=== PATIENT | female | born 1945 | race Two or more races ===

== ENCOUNTER 2023-05-31 11:52 | Outpatient (AMB) | payer MEDICARE, MEDICAID, SELFPAY ==
--- NOTE | 2023-05-31 11:59 | MHC.OFFVIS ---
Intake Vital Signs 05/31/23 12:00 Height 5 ft 4 in Weight 156 lb 15.506 oz BMI 26.9 BP 137/65 Blood Pressure Location Rt brachial Position Sitting Pulse 70 Intake Visit Reasons: + colo gaurd Intake Note: Katie presents to in office visit today as a new patient for positive cologuard. CC:Patient c/o constipation, a lot of gas, and diarrhea. Patient with hx of diverticulosis. Last colonoscopy and EGD about 10 years ago at [facility]. Patient reports seeing dark blood in her stools when she is very constipated. She also reports getting nausea and vomiting about twice a week usually after eating and diarrhea worst at night. Per patient last time she had an EGD done she got pancreatitits and she would not like to have EGD done again. [employer] Required: No Accompanied by: Daughter Allergies oxycodone [From PERCOCET] Allergy (Intermediate, Verified 05/31/23 12:17) VOMIITNG codeine [CODEINE] Allergy (Unknown, Verified 05/31/23 12:17) NAUSEA,VOMITING HPI + colo gaurd HPI Details 77-year-old female with past medical history of asthma, anxiety, hyperthyroidism, hypercholesteremia is here today for initial consultation. Patient is here for colonoscopy as she had positive fit test and PCP send her for colonoscopy. Patient had last colonoscopy over 10 years ago and was told that she most likely will never had to have another one. Patient reports postprandial epigastric pain and bloating. Patient reports that she noticed black stool specially if she does not go to the bathroom for couple days. Occasional postprandial abdominal bloating depending on what she eats. Patient reports occasional postprandial loose stools then constipation. Patient is status post cholecystectomy many years ago. Patient reports that her symptoms very, once loose stools then constipation for few days. Patient also reports getting nauseous 2 to 3 times a week. Symptoms of nausea, epigastric pain are worse at night and in the morning. Patient reports dyspepsia without dysphagia or odynophagia. Reports occasional melena without hematochezia weight loss or ribbon like stools. [facility] Surgical History (Updated 05/31/23 @ 12:20 by Delroy Triplett [facility] History of nasal surgery History of cholecystectomy History of esophagogastroduodenoscopy (EGD) H/O colonoscopy Review of Systems Const Denies weight gain and Denies weight loss ENT Reports no additional complaints, Denies dysphagia and Denies odynophagia Card Reports no additional complaints Resp Reports no additional complaints GI Reports abdominal pain, Denies belching, Denies melena, Reports bloating, Reports constipation, Denies dysphagia, Denies excessive flatus, Denies dyspepsia, Reports heartburn, Denies diarrhea, Reports loose stools, Denies nausea, Denies odynophagia and Denies vomiting Reports no additional complaints Musc Reports no additional complaints Neuro Reports no additional complaints Psych Reports no additional complaints Endo Reports no additional complaints Physical Exam Vital Signs: Last Vital Signs Pulse 70 05/31/23 12:00 BP 137/65 05/31/23 12:00 BMI result Body Mass Index 26.9 Const General: healthy appearing, no acute distress and well developed Nutritional Appearance: well nourished Orientation/consciousness: patient oriented x3 Resp Effort & Inspection: normal respiratory effort, able to speak in complete sentences, no tracheal deviation and symmetric chest movement Auscultation: clear to auscultation bilaterally Cardio Rate: regular rate GI Inspection: Yes normal to inspection and No distended Palpation (GI): Soft to palpation, not firm, nontender and No hepatosplenomegaly present Auscultation: normal bowel sounds General: Yes no CVA tenderness Back/Spine/Pelvis Back: no CVA tenderness Skin General skin exam: elasticity normal, turgor normal and dry skin Neuro General: patient oriented x3 Psych Appearance: grossly normal Mental Status: mental status grossly normal Assessment & Plan Assessment & Plan (1) Postprandial epigastric pain: Code(s): R10.13 - Epigastric pain (2) Postprandial abdominal bloating: Code(s): R14.0 - Abdominal distension (gaseous) (3) Constipation: Code(s): K59.00 - Constipation, unspecified Qualifiers: Constipation type: slow transit constipation Qualified Code(s): K59.01 - Slow transit constipation Plan Multiple symptoms of diarrhea and constipation, postprandial abdominal bloating. Will check thyroid study, vitamin-D, B12, folate, lipase transglutaminase, CRP and CBC. Patient does report black stool at times. Patient does report diarrhea more often than constipation. Patient will start Citrucel twice a day. If she becomes constipated patient can take stool softener [id number] laxative like senna or Dulcolax. Patient reports abdominal bloating and left upper quadrant discomfort we will send her to rule out pancreatic insufficiency and check lipase as well. She will return in 5 weeks we can discuss how to proceed with colonoscopy. Patient will be book for colonoscopy today. Patient is agreeable to current plan of care and verbalizes understanding of instructions. She was given the opportunity to ask questions and all questions answered. Thank you for allowing me to participate in her care Orders: Orders TSH reflex Free T4 05/31/23 K59.00 - Constipation, unspecified Transglutaminase IgA 05/31/23 R10.9 - Unspecified abdominal pain Vitamin B12 and Folate 05/31/23 R19.7 - Diarrhea, unspecified Vitamin D 25-OH (D2 and D3) 05/31/23 E55.9 - Vitamin D deficiency, unspecified Pancreatic Elastase-1 05/31/23 R10.9 - Unspecified abdominal pain Lipase 05/31/23 R10.9 - Unspecified abdominal pain Transglutaminase Ab IgG 05/31/23 R10.9 - Unspecified abdominal pain Liver Panel 05/31/23 R74.01 - Elevation of levels of liver transaminase levels C Reactive Protein 05/31/23 K58.9 - Irritable bowel syndrome without diarrhea Complete Blood Count no Diff 05/31/23 K21.9 - Gastro-esophageal reflux disease without esophagitis Medications: New methylcellulose (laxative) (Citrucel) 500 mg PO BID 60 tabs 2RF Coding Level of Care Code New Pt Level 4 (60090) Diagnoses Postprandial epigastric pain R10.13 Postprandial abdominal bloating R14.0 Slow transit constipation K59.01 Constipation type: slow transit constipation Time Spent (min) 45 Comment 30 minutes spent with patient and additional 15 minutes spent reviewing her records
[2023-05-31 12:00] VITALS: BP 137/65; PULSE 70; BMI 26.9
== END 2023-05-31 12:44 | disposition home or self-care (01) ==
PROVIDERS: PCP Internal Medicine; Visit Provider Nurse Practitioner Family
DX: R10.13 Epigastric pain (principal); R14.0 Abdominal distension (gaseous); K59.01 Slow transit constipation
CPT/HCPCS: 99204

== ENCOUNTER 2023-05-31 11:56 | Outpatient (REF) | payer MEDICARE, SELFPAY ==
[2023-05-31 14:15] LABS: Hematocrit 40.8 % (37.0-47.0); Hemoglobin 13.5 g/dl (12.0-16.0); Mean Corpuscular HGB Conc 33.1 g/dl (31.0-35.0); Mean Corpuscular Hemoglobin 29.7 pg (27.0-33.0); Mean Corpuscular Volume 89.7 fL (80.0-98.0); Platelet Count 227 X10*3/uL (160-400); Red Blood Count 4.55 X10*6/uL (4.20-5.50); Red Cell Distribution Width 12.4 % (11.0-16.0); White Blood Count 7.4 X10*3/uL (4.8-10.8)
[2023-05-31 15:12] LABS: Alanine Aminotransferase 16 U/L (0-31); Albumin Level 4.2 g/dL (3.5-5.0); Alkaline Phosphatase 114 U/L (39-117); Aspartate Amino Transferase 15 U/L (5-31); Bilirubin Direct 0.2 mg/dL (0.0-0.5); Bilirubin Total 0.5 mg/dL (0.0-1.0); C Reactive Protein 0.46 mg/dL (< or = 0.50); Lipase 14 U/L (8-78)
[2023-05-31 15:17] LABS: TSH reflex Free T4 0.61 uIU/mL (0.32-4.0)
[2023-05-31 15:22] LABS: Folate 13.6 ng/mL (> or = 4.0); Vitamin B12 594 pg/mL (200-900)
[2023-06-01 20:54] LABS: Transglutaminase Ab IgG <1.0 U/mL; Transglutaminase IgA <1.0 U/mL
[2023-06-05 12:18] LABS: Vitamin D 25-OH, D2 <4 ng/mL; Vitamin D 25-OH, D3 15 ng/mL; Vitamin D 25-OH, Total 15 ng/mL (30-100)
== END 2023-05-31 11:57 | disposition home or self-care (01) ==
LOC: HO.LAB 11:56
PROVIDERS: PCP Internal Medicine; Visit Provider Nurse Practitioner Family
DX: K59.00 Constipation, unspecified (principal); R10.9 Unspecified abdominal pain; R10.13 Epigastric pain; R14.0 Abdominal distension (gaseous); K59.01 Slow transit constipation; E55.9 Vitamin D deficiency, unspecified; R74.01 Elevation of levels of liver transaminase levels; K58.1 Irritable bowel syndrome with constipation; K58.0 Irritable bowel syndrome with diarrhea
CPT/HCPCS: 36415; 80076; 82306; 82607; 82746; 83690; 84443; 85027; 86140; 86364; 99202

== ENCOUNTER 2023-07-23 14:17 | Outpatient (REF) | payer MEDICARE, SELFPAY ==
[2023-07-31 20:07] LABS: Pancreatic Elastase-1 495 mcg/g
== END 2023-07-23 14:18 | disposition home or self-care (01) ==
LOC: HO.LNP 14:17
PROVIDERS: Visit Provider Nurse Practitioner Family
DX: R10.9 Unspecified abdominal pain (principal)
CPT/HCPCS: 82656

== ENCOUNTER 2023-09-24 11:30 | Outpatient (AMB) | payer MEDICARE, SELFPAY ==
--- NOTE | 2023-09-24 11:36 | A.OFFVIS_ITS ---
Vital Signs 09/24/23 11:37 Height 5 ft 4 in Weight 154 lb BMI 26.4 BP 126/66 Blood Pressure Location Lt brachial Position Sitting Pulse 71 Intake Visit Reasons: discuss prep Intake Note: Patient follow up for constipation and lab results. Patient cc: diarrhea, N/V, Abdominal pain with food, and between diarrhea and constipation on and off. Day Care Supervisor Required: No Accompanied by: Daughter Allergies oxycodone [From PERCOCET] Allergy (Intermediate, Verified 09/24/23 11:35) VOMIITNG codeine [CODEINE] Allergy (Unknown, Verified 09/24/23 11:35) NAUSEA,VOMITING HPI HPI discuss prep: Details: LAST VISIT Postprandial epigastric pain Postprandial abdominal bloating Constipation Plan Multiple symptoms of diarrhea and constipation, postprandial abdominal bloating. Will check thyroid study, vitamin-D, B12, folate, lipase transglutaminase, CRP and CBC. Patient does report black stool at times. Patient does report diarrhea more often than constipation. Patient will start Citrucel twice a day. If she becomes constipated patient can take stool softener [id number] laxative like senna or Dulcolax. Patient reports abdominal bloating and left upper quadrant discomfort we will send her to rule out pancreatic insufficiency and check lipase as well. She will return in 5 weeks we can discuss how to proceed with colonoscopy. Patient will be book for colonoscopy today. Patient is agreeable to current plan of care and verbalizes understanding of instructions. She was given the opportunity to ask questions and all questions answered. ? Thank you for allowing me to participate in her care Orders Orders TSH reflex Free T4 05/31/23 K59.00 Transglutaminase IgA 05/31/23 R10.9 Vitamin B12 and Folate 05/31/23 R19.7 Vitamin D 25-OH (D2 and D3) 05/31/23 E55.9 Pancreatic Elastase-1 05/31/23 R10.9 Lipase 05/31/23 R10.9 Transglutaminase Ab IgG 05/31/23 R10.9 Liver Panel 05/31/23 R74.01 C Reactive Protein 05/31/23 K58.9 Complete Blood Count no Diff 05/31/23 K21.9 Medications New methylcellulose (laxative) (Citrucel) 500 mg PO BID 60 tabs 2RF TODAY'S VISIT Patient is here today for follow-up and to discuss lab results. No anemia patient has essentially normal study. CRP was normal unlikely IBD. Patient continues to have occasionally loose stools postprandially depending on what she eats. Patient states that she is taking Citrucel, however she feels like it bites her up little bit so then she stops taking it. She does not feel like she empties her bowels completely though. Patient has colonoscopy scheduled for the of this month and has prep home as well as the instructions. Patient's daughter is here with her and they both understand and know how to prep. Will go over again today to see if they have any questions. Patient denies any issues with anesthesia in the past. No history of sleep apnea. Not on any anticoagulation medication. No chest pain, shortness of breath with or without exertion. [facility] Surgical History History of nasal surgery History of cholecystectomy History of esophagogastroduodenoscopy (EGD) H/O colonoscopy Review of Systems Const Denies weight gain and Denies weight loss ENT Reports no additional complaints, Denies dysphagia and Denies odynophagia Card Reports no additional complaints Resp Reports no additional complaints GI Reports abdominal pain (Cramping), Denies belching, Denies melena, Reports bloating, Reports constipation (On and off), Denies dysphagia, Denies excessive flatus, Denies dyspepsia, Reports heartburn (Occasional), Denies diarrhea, Reports loose stools, Denies nausea, Denies odynophagia and Denies vomiting Reports no additional complaints Musc Reports no additional complaints Neuro Reports no additional complaints Psych Reports no additional complaints Endo Reports no additional complaints Physical Exam Vital Signs: Last Vital Signs Pulse 71 09/24/23 11:37 BP 126/66 09/24/23 11:37 BMI result Body Mass Index 26.4 Const General: healthy appearing, no acute distress and well developed Nutritional Appearance: well nourished Orientation/consciousness: patient oriented x3 Resp Effort & Inspection: normal respiratory effort, able to speak in complete sentences, no tracheal deviation and symmetric chest movement Auscultation: clear to auscultation bilaterally Cardio Rate: regular rate GI Inspection: Yes normal to inspection and No distended Palpation (GI): Soft to palpation, not firm, nontender and No hepatosplenomegaly present Auscultation: normal bowel sounds General: Yes no CVA tenderness Back/Spine/Pelvis Back: no CVA tenderness Skin General skin exam: elasticity normal, turgor normal and dry skin Neuro General: patient oriented x3 Psych Appearance: grossly normal Mental Status: mental status grossly normal Results Reviewed Results Reviewed: Laboratory Tests 05/31/23 07/23/23 13:27 11:00 RBC 4.55 Hgb 13.5 Hct 40.8 AST 15 ALT 16 Alkaline Phosphatase 114 C-Reactive Protein 0.46 Lipase 14 Vitamin B12 594 25-OH Vitamin D Total 15 L Folate 13.6 TSH 0.61 Stool Pancreat Elastase 495 Tiss Transglutamin IgG <1.0 Tiss Transglutamin IgA <1.0 Assessment & Plan Assessment & Plan (1) Postprandial epigastric pain: Code(s): R10.13 - Epigastric pain (2) Postprandial abdominal bloating: Code(s): R14.0 - Abdominal distension (gaseous) (3) Constipation: Code(s): K59.00 - Constipation, unspecified Qualifiers: Constipation type: slow transit constipation Qualified Code(s): K59.01 - Slow transit constipation (4) Screen for colon cancer: Code(s): Z12.11 - Encounter for screening for malignant neoplasm of colon Plan Will add senna to take it at night time. Patient reports that she is constipated now that she is taking Citrucel. Patient is status post cholecystectomy postprandial diarrhea is very come in depending on what she eats. Avoid food high in fat food that aggravates her. Increase fluid intake and activity to promote better bowel motility. Again what to expect before during and after procedure discussed with patient. The importance of clear liquid diet as well as good bowel prep day before procedure discussed with her. I will see her after the procedure, sooner on as needed basis. Normal CRP rules against IBD, however colonoscopy surveillance will show if there is any colonic mucosal changes. Most likely her symptoms are related to IBS with diarrhea type and that patient does not empty her bowels completely, mixed with status post cholecystectomy symptoms. Both patient and daughter are agreeable to current plan of care and verbalizes understanding of instructions. They were given the opportunity to ask questions and all questions answered. Thank you for allowing me to participate in her care Medications: New sennosides (Natural Senna Laxative) 17.2 mg (2 x 8.6 mg) PO BEDTIME 60 tabs 3RF constipation K59.00 - Constipation, unspecified Coding Level of Care Code Est Pt Level 4 (59200) Diagnoses Postprandial epigastric pain R10.13 Postprandial abdominal bloating R14.0 Slow transit constipation K59.01 Constipation type: slow transit constipation Screen for colon cancer Z12.11 Time Spent (min) 35 Comment 20 minutes spent with patient and additional 15 minutes spent reviewing her records
[2023-09-24 11:37] VITALS: BP 126/66; PULSE 71; BMI 26.4
== END 2023-09-24 12:53 | disposition home or self-care (01) ==
PROVIDERS: PCP Internal Medicine; Visit Provider Nurse Practitioner Family
DX: R10.13 Epigastric pain (principal); R14.0 Abdominal distension (gaseous); K59.01 Slow transit constipation; Z12.11 Encounter for screening for malignant neoplasm of colon
CPT/HCPCS: 99214

== ENCOUNTER → 2023-09-24 11:30 | Outpatient (BNVA) | payer MEDICARE, SELFPAY | PROVIDERS: PCP Internal Medicine; Visit Provider Nurse Practitioner Family | DX: Z12.11 Encounter for screening for malignant neoplasm of colon (principal); K59.01 Slow transit constipation; R10.13 Epigastric pain; R14.0 Abdominal distension (gaseous) | CPT/HCPCS: 99212 ==

== ENCOUNTER 2023-10-08 10:19 | Day surgery (SDC) | payer MEDICARE, OTHER, SELFPAY ==
--- NOTE | 2023-10-07 10:15 | P.CONAN_ITS ---
Documented by User: Idalia Quiroz NP 10/07/23 10:28 HPI - Anesthesia Eval Consult details Narrative: 78yo F for Colonoscopy [facility] Past Medical History Medical History (Updated 10/07/23 @ 10:27 by Idalia Quiroz NP) HLD (hyperlipidemia) Hyperthyroidism Anxiety Asthma Surgical History Surgical History History of nasal surgery History of cholecystectomy History of esophagogastroduodenoscopy (EGD) H/O colonoscopy Social History Social History Patient Tobacco Use Status: Never used Tobacco Use of substances other than those prescribed or required for medical reasons: No Are you DNR?: No Advance Directives: No Advance Directives Information Provided: Yes Meds Allergies Allergy/AdvReac Type Severity Reaction Status Date / Time oxycodone [From PERCOCET] Allergy Intermediate VOMIITNG Verified 09/24/23 11:35 Home Medications ?Medication ?Instructions ?Recorded ?Confirmed ?Last Taken ?Type alprazolam 1 mg tablet 1 mg PO DAILY 05/31/23 Unknown History fluticasone propionate 220 2 inh inhalation BID 05/31/23 Unknown History mcg/actuation HFA aerosol inhaler levothyroxine 88 mcg tablet 88 mcg PO DAILY 05/31/23 10/08/23 History montelukast 10 mg tablet 10 mg PO DAILY 05/31/23 Unknown History quetiapine 100 mg tablet 100 mg PO BEDTIME 05/31/23 Unknown History simvastatin 40 mg tablet 40 mg PO BEDTIME 05/31/23 Unknown History Assessment and Plan Assessment Anesthesia Assessment: Chart Reviewed Documented by User: Jose Luis Torres MD 10/08/23 13:33 [facility] Past Medical History Medical History (Updated 10/07/23 @ 10:27 by Idalia Quiroz NP) HLD (hyperlipidemia) Hyperthyroidism Anxiety Asthma Family History Family history of problems with anesthesia: No Surgical History Surgical History History of nasal surgery History of cholecystectomy History of esophagogastroduodenoscopy (EGD) H/O colonoscopy History of Problems with Anesthesia: No Social History Social History Patient Tobacco Use Status: Never used Tobacco Use of substances other than those prescribed or required for medical reasons: No Are you DNR?: No Advance Directives: No Advance Directives Information Provided: Yes Meds Allergies Allergy/AdvReac Type Severity Reaction Status Date / Time oxycodone [From PERCOCET] Allergy Intermediate VOMIITNG Verified 09/24/23 11:35 Home Medications ?Medication ?Instructions ?Recorded ?Confirmed ?Last Taken ?Type alprazolam 1 mg tablet 1 mg PO DAILY 05/31/23 Unknown History fluticasone propionate 220 2 inh inhalation BID 05/31/23 Unknown History mcg/actuation HFA aerosol inhaler levothyroxine 88 mcg tablet 88 mcg PO DAILY 05/31/23 10/08/23 History montelukast 10 mg tablet 10 mg PO DAILY 05/31/23 Unknown History quetiapine 100 mg tablet 100 mg PO BEDTIME 05/31/23 Unknown History simvastatin 40 mg tablet 40 mg PO BEDTIME 05/31/23 Unknown History Exam Airway Mallampati Class: II TM Dist: <=3cm Neck ROM: Full Loose/Missing/Broken Teeth: No Heart: ok Lungs: ok Assessment and Plan Assessment Anesthesia Assessment: Anesthesia Plan Discussed Final Anesthetic Review Family History of Problems with Anesthesia: No History of Problems with Anesthesia: No NPO: Yes ASA Class: III Final Preanesthetic Review: No Changes in Pt Med Stat, Meds/Allgs Chart Reviewed, Consent Obtained/Reviewed and Anes Risks/Benef Reviewed Patient Risk: Intermediate Procedure Risk: Low Anesthetic Plan Anesthetic Plan: MAC: and Agree w/ Assess. and Plan Disposition: Standard PACU
[2023-10-08 11:54] VITALS: BMI 26.8
[2023-10-08 11:56] VITALS: BP 138/64; PULSE 65; RESP 16; TEMP 35.9; O2SAT 98
--- NOTE | 2023-10-08 12:06 | MHC.SHP ---
Pre-Procedural Eval Section A - 24 Hr Update-Section A only Date of Service: 10/08/23 The patient is an INPATIENT: No Changes since office visit: Yes Patient answered all questions; No Cold of Flu in the past 2 weeks, No New Medical Problems and No Changes in Medication The patient has been examined within 24 hours of the surgical procedure. The History & Physical has been completed within 30 days and I have reviewed it.: Yes Section B - Complete if H&P > 30 days Chief Complaint: screening, post prandial diarrhea, IBS Allergies: Allergies Allergy/AdvReac Type Severity Reaction Status Date / Time oxycodone [From PERCOCET] Allergy Intermediate VOMIITNG Verified 09/24/23 11:35 Review of Systems Sugical H&P ROS: Negative: Constitution, Cardiovascular, Respiratory and Gastrointestinal Exam Surgical H&P Exam: Normal: Heart, Normal: Lungs, Normal: Extremities and Normal: Abdomen Plan Diagnosis/Plan: Unchanged I have reviewed the history and physical and performed a pertinent physical examination on my patient. No changes have occurred unless specified. Time Spent With Patient Time: Total time managing care of this patient today ____ minutes.
[2023-10-08] MEDS: Lactated Ringers 1,000 ML 100 ML IVCONT (12:11)
--- NOTE | 2023-10-08 14:36 | HO.OPN-COLON ---
Colonoscopy Operative Note Operative Note Date of Service: 10/08/23 Narrative: COLONOSCOPY TILL CECUM WITH SNARE POLYPECTOMY, SUBMUCOSAL INJECTION, APC AND HEMOCLIP PLACEMENT Pre-op diagnosis: Surveillance for colon polyps, constipation diarrhea. Post-op diagnosis:? Multiple colon polyps, Diverticulosis, hemorrhoids Endoscopist:? Michael Hudson MD Anesthesia:?MAC Consent: Indications for the procedure and potential complications of bleeding, perforation, reaction to medications and missed diagnosis were discussed with the patient and informed consent was obtained. Instrument: Olympus PCF H 190 L variable stiffness pediatric colonoscope Monitoring: Vital signs and clinical assessment, intermittent blood pressure monitoring, continuous EKG monitoring, Pulse oximetry and Carbon Dioxide monitoring were done throughout the procedure. Please see anesthesia flowsheet. Colon withdrawl time was 55 minutes. Procedure: The patient was placed in the left lateral decubitis position and pre-procedure medications were administered. After a digital rectal examination of the ano-rectum, the video colonoscope was inserted into the rectum and advanced through the colon to the cecum. The colonoscope was slowly withdrawn in a retrograde panoramic fashion and the colon mucosa was carefully examined including a retroflexed view of the rectum. Findings and interventions are described below. Procedure Difficulty: without difficulty Findings: Terminal Ileum: Not evaluated Cecum: A 10 mm flat polyp - raised with 3 cc of Eleview and removed with a stiff hot snare. Polypectomy site was closed with 1 hemoclip Ascending Colon: A 3 cms x 1 cms elongated polyp overlying a fold at 80 cms. Polyp was raised with 9 cc of Eleview and removed piecemeal with a stiff hot snare. Polypectomy site was treated with APC, closed with 2 hemoclips and polypectomy site was marked with Analisa. Six 10 - 18 mm sessile polyps - removed with a hot snare. One polypectomy site was closed with 1 hemoclip. A 2 - 2.5 cms sessile polyp in the distal ascending colon at 60 cms. Polyp was removed piecemeal with a stiff hot snare and polypectomy site was marked with Analisa ink Transverse Colon: A few 8 to 10 mm sessile polyps in the proximal TC. Polyps were not removed due to excessive length of the procedure Descending Colon: Moderate diverticulosis Sigmoid Colon: Severe diverticulosis with luminal narrowing Rectum: Normal Ano-rectum: Moderate internal hemorrhoids Colon preparation: , Good after some irrigation. [place] Bowel Preparation Scale Right colon; 2 Transverse colon: 2 Left colon; 2 (0 = Unprepared colon segment with mucosa not seen due to solid stool that cannot be cleared. 1 = Portion of mucosa of the colon segment seen, but other areas of the colon segment not well seen due to staining, residual stool and/or opaque liquid. 2 = Minor amount of residual staining, small fragments of stool and/or opaque liquid, but mucosa of colon segment seen well. 3 = Entire mucosa of colon segment seen well with no residual staining, small fragments of stool or opaque liquid) Impression and Post Procedure Diagnosis: Colonoscopy Findings: Nine medium to large sized polyps were removed A few 8 to 10 mm sessile polyps in the transverse colon. Polyps not removed due to excessive length of the procedure Moderate to severe diverticulosis seen in the left colon Moderate hemorrhoids on retroflexed exam. Plan: Pt has a FU appointment on 10/22/23 with Brunilda Bullock, CUSTOMER TECHNICAL SERVICES MANAGER Repeat Colonoscopy in 6 months if polyps are adenomatous and 10 year if polyps are hyperplastic. Above findings were reviewed with the patient and relevant handouts were given and the discharge area. BIOPSIES SHOWED: A. Colon, ascending, polypectomies (6): Fragments of tubular adenomata; negative for high-grade dysplasia or carcinoma. B. Cecum, polypectomy: Inflammatory polyp. C. Colon, proximal ascending at 80 cm, polypectomy: Fragments of tubular adenoma; negative for high- grade dysplasia or carcinoma. D. Colon, distal ascending, at 60 cm, polypectomy: Tubular adenoma; negative for high-grade dysplasia or carcinoma
[2023-10-08 14:43] VITALS: BP 112/58; PULSE 68; RESP 12; TEMP 36.1; O2SAT 95
[2023-10-08 14:58] VITALS: BP 127/67; PULSE 68; RESP 9; O2SAT 96
[2023-10-08 15:13] VITALS: BP 130/75; PULSE 68; RESP 18; TEMP 36.1; O2SAT 97
== END 2023-10-08 15:47 | disposition home or self-care (01) ==
PROVIDERS: PCP Internal Medicine; Visit Provider Internal Medicine Gastroenterology
PROC: 0DJD8ZZ Inspection of Lower Intestinal Tract, Via Natural or Artificial Opening Endoscopic (ICD-10-PCS; CPT 45378; principal; 2023-10-08 12:10)
DX: Z12.11 Encounter for screening for malignant neoplasm of colon (principal); Z86.010 Personal history of colon polyps; D12.2 Benign neoplasm of ascending colon; K51.40 Inflammatory polyps of colon without complications; K57.30 Diverticulosis of large intestine without perforation or abscess without bleeding; K64.8 Other hemorrhoids; K59.1 Functional diarrhea; K59.01 Slow transit constipation; R14.0 Abdominal distension (gaseous); Z88.5 Allergy status to narcotic agent; Z90.49 Acquired absence of other specified parts of digestive tract
CPT/HCPCS: 45385; 45381; 88305; J2704; J3010

== ENCOUNTER → 2023-10-08 10:19 | Outpatient (BNV) | payer MEDICARE, SELFPAY | PROVIDERS: PCP Internal Medicine; Visit Provider Internal Medicine Gastroenterology | DX: Z12.11 Encounter for screening for malignant neoplasm of colon (principal); Z86.010 Personal history of colon polyps; D12.2 Benign neoplasm of ascending colon; K57.90 Diverticulosis of intestine, part unspecified, without perforation or abscess without bleeding | CPT/HCPCS: 45381; 45385 ==

== ENCOUNTER 2023-10-22 12:00 | Outpatient (AMB) | payer MEDICARE, SELFPAY ==
--- NOTE | 2023-10-22 12:12 | A.OFFVIS_ITS ---
Vital Signs 10/22/23 12:13 Height 5 ft 4 in Weight 157 lb 13.616 oz BMI 27.1 BP 132/58 L Blood Pressure Location Lt brachial Position Sitting Pulse 64 Pulse Source Pulse Oximeter Pulse Oximetry (%) 97 Oxygen Delivery Method Room Air Intake Visit Reasons: follow up after procedure Intake Note: Katie presents in office today for a scheduled post op FUV. CC: Pt reports a new concern regarding appetite and intake. Pt states that they're experiencing abdominal pain and difficulty with intake and digestion which seems worse post op. Pt still experiencing frequent and intermittent diarrhea and constipation. Drugless Physician Required: No Accompanied by: Grand Child Allergies oxycodone [From PERCOCET] Allergy (Intermediate, Verified 10/22/23 12:12) VOMIITNG HPI HPI follow up after procedure: Details: LAST VISIT: Postprandial epigastric pain Postprandial abdominal bloating Constipation Screen for colon cancer Plan Will add senna to take it at night time. Patient reports that she is constipated now that she is taking Citrucel. Patient is status post cholecystectomy postprandial diarrhea is very come in depending on what she eats. Avoid food high in fat food that aggravates her. Increase fluid intake and activity to promote better bowel motility. Again what to expect before during and after procedure discussed with patient. The importance of clear liquid diet as well as good bowel prep day before procedure discussed with her. I will see her after the procedure, sooner on as needed basis. Normal CRP rules against IBD, however colonoscopy surveillance will show if there is any colonic mucosal changes. 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 Both patient and daughter are agreeable to current plan of care and verbalizes understanding of instructions. They were given the opportunity to ask questions and all questions answered. ? Thank you for allowing me to participate in her care Medications New sennosides (Natural Senna Laxative) 17.2 mg (2 x 8.6 mg) PO BEDTIME 60 tabs 3RF constipation K59.00 COLONOSCOPY Findings: Terminal Ileum: Not evaluated Cecum: A 10 mm flat polyp - raised with 3 cc of Eleview and removed with a stiff hot snare. Polypectomy site was closed with 1 hemoclip Ascending Colon: A 3 cms x 1 cms elongated polyp overlying a fold at 80 cms. Polyp was raised with 9 cc of Eleview and removed piecemeal with a stiff hot snare. Polypectomy site was treated with APC, closed with 2 hemoclips and polypectomy site was marked with Analisa. Six 10 - 18 mm sessile polyps - removed with a hot snare. One polypectomy site was closed with 1 hemoclip. A 2 - 2.5 cms sessile polyp in the distal ascending colon at 60 cms. Polyp was removed piecemeal with a stiff hot snare and polypectomy site was marked with Analisa ink Transverse Colon: A few 8 to 10 mm sessile polyps in the proximal TC. Polyps were not removed due to excessive length of the procedure Descending Colon: Moderate diverticulosis Sigmoid Colon: Severe diverticulosis with luminal narrowing Rectum: Normal Ano-rectum: Moderate internal hemorrhoids Colon preparation: , Good after some irrigation. Labadie Bowel Preparation Scale Right colon; 2 Transverse colon: 2 Left colon; 2 (0 = Unprepared colon segment with mucosa not seen due to solid stool that cannot be cleared. 1 = Portion of mucosa of the colon segment seen, but other areas of the colon segment not well seen due to staining, residual stool and/or opaque liquid. 2 = Minor amount of residual staining, small fragments of stool and/or opaque liquid, but mucosa of colon segment seen well. 3 = Entire mucosa of colon segment seen well with no residual staining, small fragments of stool or opaque liquid) Impression and Post Procedure Diagnosis: Colonoscopy Findings: Nine medium to large sized polyps were removed A few 8 to 10 mm sessile polyps in the transverse colon. Polyps not removed due to excessive length of the procedure Moderate to severe diverticulosis seen in the left colon Moderate hemorrhoids on retroflexed exam. Plan: Pt has a FU appointment on 10/22/23 with Brunilda Bullock NP Repeat Colonoscopy in 6 months if polyps are adenomatous and 10 year if polyps are hyperplastic. Above findings were reviewed with the patient and relevant handouts were given and the discharge area. BIOPSIES SHOWED: A. Colon, ascending, polypectomies (6): Fragments of tubular adenomata; negative for high-grade dysplasia or carcinoma. B. Cecum, polypectomy: Inflammatory polyp. C. Colon, proximal ascending at 80 cm, polypectomy: Fragments of tubular adenoma; negative for high- grade dysplasia or carcinoma. D. Colon, distal ascending, at 60 cm, polypectomy: Tubular adenoma; negative for high-grade dysplasia or carcinoma TODAY'S VISIT: Patient is here today for follow-up and to discuss colonoscopy results. Patient denies any ill effects from the prep, anesthesia or procedure itself. Patient reports that continues to have abdominal pain postprandially and occasional diarrhea postprandially. On and off constipation and diarrhea. Colonoscopy results discussed with patient. Large amount of moderate-sized tubular adenoma found throughout the whole colon. Patient will need to have colonoscopy repeated in 6 months. Patient denies melena, hematochezia. Denies any dyspepsia, dysphagia or odynophagia. Patient reports to have good appetite although is very careful of what she eats as some of the food causes her to have diarrhea. Patient denies any other GI concerning symptoms. Will schedule patient for colonoscopy [facility] Medical History (Updated 10/22/23 @ 13:07 by Nivia Bullock [facility]) Tubular adenoma of colon HLD (hyperlipidemia) Hyperthyroidism Anxiety Asthma Surgical History History of nasal surgery History of cholecystectomy History of esophagogastroduodenoscopy (EGD) H/O colonoscopy Social History Patient Tobacco Use Status: Never used Tobacco Review of Systems Const Denies weight gain and Denies weight loss ENT Reports no additional complaints, Denies dysphagia and Denies odynophagia Card Reports no additional complaints Resp Reports no additional complaints GI Reports abdominal pain (Cramping), Denies belching, Denies melena, Reports bloating, Reports constipation (On and off), Denies dysphagia, Denies excessive flatus, Denies dyspepsia, Reports heartburn (Occasional), Denies diarrhea, Reports loose stools, Denies nausea, Denies odynophagia and Denies vomiting Reports no additional complaints Musc Reports no additional complaints Neuro Reports no additional complaints Psych Reports no additional complaints Endo Reports no additional complaints Physical Exam Vital Signs: Last Vital Signs Pulse 64 10/22/23 12:13 BP 132/58 L 10/22/23 12:13 Pulse Ox 97 10/22/23 12:13 Oxygen Delivery Method Room Air 10/22/23 12:13 BMI result Body Mass Index 27.1 Const General: healthy appearing, no acute distress and well developed Nutritional Appearance: well nourished Orientation/consciousness: patient oriented x3 Resp Effort & Inspection: normal respiratory effort, able to speak in complete sentences, no tracheal deviation and symmetric chest movement Auscultation: clear to auscultation bilaterally Cardio Rate: regular rate GI Inspection: Yes normal to inspection and No distended Palpation (GI): Soft to palpation, not firm, nontender and No hepatosplenomegaly present Auscultation: normal bowel sounds General: Yes no CVA tenderness Back/Spine/Pelvis Back: no CVA tenderness Skin General skin exam: elasticity normal, turgor normal and dry skin Neuro General: patient oriented x3 Psych Appearance: grossly normal Mental Status: mental status grossly normal Assessment & Plan Assessment & Plan (1) Tubular adenoma of colon: Code(s): D12.6 - Benign neoplasm of colon, unspecified Category: Medical (2) Postprandial epigastric pain: Code(s): R10.13 - Epigastric pain (3) Postprandial abdominal bloating: Code(s): R14.0 - Abdominal distension (gaseous) (4) Constipation: Code(s): K59.00 - Constipation, unspecified Qualifiers: Constipation type: slow transit constipation Qualified Code(s): K59.01 - Slow transit constipation (5) Status post colonoscopy: Code(s): Z98.890 - Other specified postprocedural states Plan Patient will schedule colonoscopy. Multiple large to medium size polyps showing tubular adenoma without high-grade dysplasia or carcinoma. Please book procedure for patient. Patient had no issues with anesthesia in the past. Not on any anticoagulation medication. What to expect before during and after procedure discussed with patient. Patient was encouraged to increase fiber in her diet and take Senokot at bedtime. She will call our office if she will have any issues. Patient is agreeable to current plan of care and verbalizes understanding of instructions. She was given the opportunity to ask questions and all questions answered. Thank you for allowing me to participate in her care Medications: New bisacodyl (Dulcolax (bisacodyl)) take 4 tabs at noon the day before your colonoscopy 20 mg (4 x 5 mg) PO ONCE 4 tabs 0RF 1 day Z12.11 - Encounter for screening for malignant neoplasm of colon polyethylene glycol 3350 (Miralax) As directed by gastroenterology department at [facility] 238 grams PO ONCE 238 grams 0RF Z12.11 - Encounter for screening for malignant neoplasm of colon Refilled sennosides (Natural Senna Laxative) 17.2 mg (2 x 8.6 mg) PO BEDTIME 180 tabs 3RF constipation K59.00 - Constipation, unspecified Coding Level of Care Code Est Pt Level 3 (52188) Diagnoses Tubular adenoma of colon D12.6 Postprandial epigastric pain R10.13 Postprandial abdominal bloating R14.0 Slow transit constipation K59.01 Constipation type: slow transit constipation Status post colonoscopy Z98.890 Time Spent (min) 30 Comment 20 minutes spent with patient and additional 10 minutes spent reviewing her records
[2023-10-22 12:13] VITALS: BP 132/58; PULSE 64; O2SAT 97; BMI 27.1
== END 2023-10-22 12:42 | disposition home or self-care (01) ==
PROVIDERS: PCP Internal Medicine; Visit Provider Nurse Practitioner Family
DX: D12.6 Benign neoplasm of colon, unspecified (principal); R10.13 Epigastric pain; R14.0 Abdominal distension (gaseous); K59.01 Slow transit constipation; Z98.890 Other specified postprocedural states
CPT/HCPCS: 99213

== ENCOUNTER → 2023-10-22 12:00 | Outpatient (BNVA) | payer MEDICARE, SELFPAY | PROVIDERS: PCP Internal Medicine; Visit Provider Nurse Practitioner Family | DX: K59.01 Slow transit constipation (principal); R19.7 Diarrhea, unspecified; R10.9 Unspecified abdominal pain; D12.6 Benign neoplasm of colon, unspecified; R10.13 Epigastric pain; R14.0 Abdominal distension (gaseous); Z98.890 Other specified postprocedural states | CPT/HCPCS: 99212 ==

== ENCOUNTER 2024-04-07 14:24 | Emergency (ER) | payer MEDICARE, SELFPAY ==
--- NOTE | ~2024-04-07 | XR_ITS ---
EXAMINATION: XR CHEST 2 VIEWS HISTORY: COVID and flu positive COMPARISON: Comparison is made with the prior examination dated 08/15/2016. FINDINGS: PA and lateral views of the chest are submitted. The lungs are expanded and clear. There is no pleural effusion, pneumothorax, or pulmonary vascular congestion. The heart is normal in size. There is degenerative disc disease of the spine. Calcified bilateral breast implants are again noted. XR/XR chest 2V IMPRESSION: No acute cardiopulmonary abnormality. Electronically signed by: Armand Luciano MD 04/07/2024 03:45 PM EST
[2024-04-07 14:58] VITALS: BP 120/62; PULSE 74; RESP 16; TEMP 36.9; O2SAT 98; BMI 26.3
--- NOTE | 2024-04-07 15:00 | ED.GENADULT ---
HPI - General Adult General Chief complaint: General Medical Stated complaint: covid and flu + Time Seen by Provider: 04/07/24 19:00 Source: patient and family (Ext [id number]) Mode of arrival: ambulatory History of Present Illness ED Provider: Dr. Shravan Munoz HPI narrative: 78-year-old female with a history of tubular adenoma of the colon, hyperlipidemia, hyper for thyroidism, anxiety, asthma he was referred to the emergency department by her PCP for evaluation of influenza and COVID 19 infection. Patient was been sick for proximally 1 week. The patient was had a cough which is productive in getting worse. She has nasal congestion and rhinorrhea. She was had chest pain worse with coughing and shortness of breath with dyspnea on exertion. Patient was had subjective fever and chills. She had nausea but no vomiting. She did have several episodes of loose diarrheal stool. She denied myalgias arthralgias. She was seen by her doctor today and was diagnosed with COVID 19 and influenza A. The patient was then referred to the emergency department for further evaluation. Related Data Home Medications ?Medication ?Instructions ?Recorded ?Confirmed alprazolam 1 mg tablet 1 mg PO DAILY 05/31/23 fluticasone propionate 220 2 inh inhalation BID 05/31/23 mcg/actuation HFA aerosol inhaler levothyroxine 88 mcg tablet 88 mcg PO DAILY 05/31/23 montelukast 10 mg tablet 10 mg PO DAILY 05/31/23 quetiapine 100 mg tablet 100 mg PO BEDTIME 05/31/23 simvastatin 40 mg tablet 40 mg PO BEDTIME 05/31/23 Previous Rx's ?Medication ?Instructions ?Recorded cholecalciferol (vitamin D3) 50 50 mcg PO DAILY #90 caps 08/02/23 mcg (2,000 unit) capsule bisacodyl 5 mg tablet,delayed 20 mg (4 x 5 mg) PO ONCE 1 day #4 10/22/23 release (Dulcolax (bisacodyl)) tabs polyethylene glycol 3350 17 238 g PO ONCE #238 grams 10/22/23 gram/dose oral powder (Miralax) sennosides 8.6 mg tablet (Natural 17.2 mg (2 x 8.6 mg) PO BEDTIME 10/22/23 Senna Laxative) constipation #180 tabs azithromycin 250 mg tablet See Rx Instructions PO .COMPLEX #6 01/24/25 (Zithromax Z-Vinay) tabs benzonatate 100 mg capsule 100 mg PO TID PRN cough #20 caps 04/07/24 prednisone 20 mg tablet 40 mg (2 x 20 mg) PO DAILY 5 days 04/07/24 #10 tabs Allergies Allergy/AdvReac Type Severity Reaction Status Date / Time oxycodone [From PERCOCET] Allergy Intermediate VOMIITNG Verified 04/07/24 15:00 Review of Systems Review of Systems: Yes all other systems are reviewed and are negative [facility] Past Medical History Medical History (Updated 04/07/24 @ 19:49 by Shravan Munoz MD) Tubular adenoma of colon HLD (hyperlipidemia) Hyperthyroidism Anxiety Asthma Surgical History History of nasal surgery History of cholecystectomy History of esophagogastroduodenoscopy (EGD) H/O colonoscopy Social History Social History Patient Tobacco Use Status: Never used Tobacco Advance Directives: No Advance Directives Information Provided: Yes Do you have a plan to hurt others: No Plan Physical Exam ED Vital Signs: Vital Signs - 24 hr 04/07/24 14:58 Temperature 98.4 F Pulse Rate 74 Respiratory Rate 16 Blood Pressure 120/62 Pulse Oximetry 98 Oxygen Delivery Method Room Air BMI result Body Mass Index 26.3 Vital signs were normal with an O2 saturation of 98% on room air Exam: General: Awake, alert in no distress Head: Normocephalic, atraumatic EENT: PERRL, Lids normal, sclera normal, conjunctiva normal, nose normal , ears normal, throat without erythema or exudates Neck: Supple, no adenopathy Lung: breath sounds symmetric, there is wheezing and rhonchi at the end of expiration, there are no rales Chest: symmetric movement, nontender Heart: regular rate and rhythm, normal S1, S2 no murmurs or rubs Abdomen: soft, non-tender, nondistended, normal bowel sounds Back: no vertebral tenderness, no CVAT Extremities: no deformities, moves all extremities symmetrically Psych: Pleasant, cooperative Course Course Course Narrative: This is a rapid medical exam performed by [place] NP: Additional HPI, ROS, PE not included below will be deferred to primary provider. Patient is a 78-year-old female with pmhx asthma, hyperthyroidism, HLD, anxiety presenting with complaint of congestion, shortness of breath. Saw PCP and tested positive for Covid and flu A. PCP feels patient requires admission. Plan: labs, CXR Medical Decision Making Medical Decision Making [facility] Narrative: 78-year-old female with a history of tubular adenoma of the colon, hyperlipidemia, hyper for thyroidism, anxiety, asthma he was referred to the emergency department by her PCP for evaluation of influenza and COVID 19 infection with symptoms x7 days. Symptoms include congestion, cough, pleuritic chest pain, shortness of breath, dyspnea on exertion, fever, chills and episodic diarrhea. Vital signs were normal with an O2 saturation of 98% on room air. Lung exam did reveal wheezing and rhonchi otherwise unremarkable. Differential diagnosis: ?Includes but is not limited to COVID-19 pneumonia, influenza a pneumonia, bronchitis, community-acquired pneumonia, asthma exacerbation Course: 19:55 My interpretation patient's laboratory evaluation as follows: WBC was low 4500. AST and ALT elevated 36 and 44. Chest x-ray revealed no evidence of pneumonia. Patient has had symptoms for 1 week therefore Paxlovid and Tamiflu are not indicated. The patient is wheezing and does have rhonchi on lung exam. There is no evidence of pneumonia on the chest x-ray in her laboratory evaluation was unremarkable. Patient most likely has an asthma exacerbation from her viral infections and may also have superimposed bacterial bronchitis. I did discuss this with the patient and the patient's ex [id number] and they both agree with treatment for asthma exacerbation and possible bacterial bronchitis. Patient was given prescription for Zithromax Z-Vinay, prednisone 40 mg once a day for 5 days and Tessalon Perles 100 mg 3 times a day as needed for cough. She was given her 1st dose of these medications here in the emergency department. She was given printed and verbal instructions and discharged home. Admission/Observation Consideration of admission/observation: Escalation of care including admission/observation considered Lab Data [facility] Lab Attestation statement: I reviewed the patient's lab results. 04/07/24 15:34 04/07/24 15:34 Labs: Lab Results 04/07/24 Range/Units 15:34 WBC 4.5 L (4.8-10.8) X10*3/uL RBC 4.62 (4.20-5.50) X10*6/uL Hgb 13.6 (12.0-16.0) g/dl Hct 41.2 (37.0-47.0) % MCV 89.2 (80.0-98.0) fL MCH 29.4 (27.0-33.0) pg MCHC 33.0 (31.0-35.0) g/dl RDW 12.4 (11.0-16.0) % Plt Count 172 (160-400) X10*3/uL MPV 8.8 L (9.4-12.3) fL Immature Gran % (Auto) 0.2 (0.0-0.4) % Neut % (Auto) 38.9 L (45-73) % Lymph % (Auto) 49.2 H (20-40) % Dolores % (Auto) 11.3 H (2-11) % Eos % (Auto) 0.0 (0-4) % Baso % (Auto) 0.4 (0-2) % Lymph # (Auto) 2.2 (1.2-4.9) X10*3/uL Dolores # (Auto) 0.5 (0.1-1.2) X10*3/uL Eos # (Auto) 0.0 (0.0-0.4) X10*3/uL Baso # (Auto) 0.0 (0.0-0.2) X10*3/uL Abs Immat Gran (auto) 0.01 (0.00-0.03) X10*3/uL Absolute Neuts (auto) 1.8 L (2.0-8.3) x10*3/uL Absolute Nucleated RBC 0.000 (0.0-0.012) X10*3/uL Nucleated RBC % (auto) 0.0 (0.0-0.2) /100WBC Sodium 141 (135-145) mmol/L Potassium 3.8 (3.3-5.1) mmol/L Chloride 105 (96-108) mmol/L Carbon Dioxide 29 (22-29) mmol/L Anion Gap 11 L (12-20) BUN 15 (9-16) mg/dL Creatinine 0.78 (0.5-1.4) mg/dL Estim Creat Clear Calc 58.7 Estimated GFR > 60 Random Glucose 95 (60-115) mg/dL Calcium 8.8 (8.4-10.2) mg/dL Total Bilirubin 0.4 (0.0-1.0) mg/dL AST 36 H (5-31) U/L ALT 44 H (0-31) U/L Alkaline Phosphatase 105 (39-117) U/L Total Protein 7.5 (6.5-8.0) g/dL Albumin 4.2 (3.5-5.0) g/dL Independent Interpretation I performed an independent interpretation of an: Plain X-Ray Interpretation: My independent interpretation of the patient's two view chest x-ray is as follows: No acute disease Radiology Impression Discussion of test interpretation with radiology: I have reviewed the radiologist's reading. Radiologist Impression: XR chest 2V IMPRESSION: No acute cardiopulmonary abnormality. Electronically signed by: Armand Luciano MD 04/07/2024 03:45 PM Independent Historian Clinical information obtained from an independent historian. History obtained from or confirmed by: Other (ex- [id number]) Prescription Management I considered prescription management with: Antibiotic (Zithromax Z-Vinay) and Other (Anti-inflammatory steroids: Prednisone, antitussive: Tessalon Perles) Chronic Conditions Patient?s care impacted by: Other (Asthma) Discharge Plan Discharge Clinical Impression: COVID-19, Influenza A, Bronchitis Asthma exacerbation Qualifiers: Asthma severity: moderate Asthma persistence: persistent Qualified Code(s): J45.41 - Moderate persistent asthma with (acute) exacerbation Patient Disposition: Home, Self-Care Instructions: Asthma (ED), Influenza (ED), COVID-19 (Coronavirus Disease 2019) (ED) Additional Instructions: Since you have been vaccinated at least 3 times for COVID, you should have some immunity to the COVID virus. Also, the COVID virus his changed it was unlikely that you will develop COVID pneumonia and require treatment on a ventilator. At this time you do not have pneumonia on your chest x-ray. Paxlovid is a medication for COVID but needs to be started within 3-5 days of your symptoms and it was not indicated in someone who has been vaccinated against COVID. Influenza A is an upper respiratory virus that can cause pneumonia in you do not have pneumonia at this time based on your chest x-ray in your symptoms. There is a treatment for the flu occult Tamiflu but it needs to be started within 3 days. Based on your lung exam you are wheezing and I suspect that you may have an exacerbation of your asthma in you also may have bronchitis based on your productive cough Take Zithromax (azithromycin) Z-Vinay as prescribed. Day 1 take 2 pills, each day after that take 1 pill for total of 5 days. This medication states in your system for 7-10 days and continues to work despite only taking it for 5 days. Take prednisone 20 mg pills, 2 pills once a day for 5 days. While you ?are taking prednisone, do not take any NSAIDs (Motrin, Advil, ibuprofen, Aleve, naproxen) Take Tylenol (acetaminophen) 500 mg pills, 2 pills every 6 hours as needed for pain or fever. Take Tessalon Perles 100 mg pills, 1 pill 3 times a day as needed for cough Follow-up with your doctor in 2 days. Please return to the emergency department if your symptoms get worse or if you develop any symptoms that are concerning to you. Prescriptions: New azithromycin [Zithromax Z-Vinay] 250 mg tablet See Rx Instructions PO .COMPLEX Qty: 6 0RF Rx Instructions: take 500 mg today (day 1), then 250 mg for 4 days (days 2-5) prednisone 20 mg tablet 40 mg PO DAILY 5 Days Qty: 10 0RF benzonatate 100 mg capsule 100 mg PO TID PRN (Reason: cough) Qty: 20 0RF No Action cholecalciferol (vitamin D3) 50 mcg (2,000 unit) capsule 50 mcg PO DAILY Qty: 90 3RF sennosides [Natural Senna Laxative] 8.6 mg tablet 17.2 mg PO BEDTIME Qty: 180 3RF bisacodyl [Dulcolax (bisacodyl)] 5 mg tablet,delayed release (DR/EC) 20 mg PO ONCE 1 Days Qty: 4 0RF Rx Instructions: take 4 tabs at noon the day before your colonoscopy polyethylene glycol 3350 [Miralax] 17 gram/dose powder 238 g PO ONCE Qty: 238 0RF Rx Instructions: As directed by gastroenterology department at [facility] montelukast 10 mg tablet 10 mg PO DAILY levothyroxine 88 mcg tablet 88 mcg PO DAILY simvastatin 40 mg tablet 40 mg PO BEDTIME alprazolam 1 mg tablet 1 mg PO DAILY quetiapine 100 mg tablet 100 mg PO BEDTIME fluticasone propionate 220 mcg/actuation HFA aerosol inhaler 2 inh inhalation BID Print Language: German
[2024-04-07 15:44] LABS: MANUAL DIFF FLAG NO
[2024-04-07 15:47] LABS: Basophils Percent Auto 0.4 % (0-2); Hematocrit 41.2 % (37.0-47.0); Hemoglobin 13.6 g/dl (12.0-16.0); Imm Gran Abs Auto 0.01 X10*3/uL (0.00-0.03); Imm Gran Pct Auto 0.2 % (0.0-0.4); Lymphocytes Absolute Auto 2.2 X10*3/uL (1.2-4.9); Lymphocytes Percent Auto 49.2 % (20-40); Mean Corpuscular Hemoglobin 29.4 pg (27.0-33.0); Mean Corpuscular Volume 89.2 fL (80.0-98.0); Mean Platelet Volume 8.8 fL (9.4-12.3); Monocytes Absolute Auto 0.5 X10*3/uL (0.1-1.2); Monocytes Percent Auto 11.3 % (2-11); Neutrophils Absolute Auto 1.8 x10*3/uL (2.0-8.3); Neutrophils Percent Auto 38.9 % (45-73); Platelet Count 172 X10*3/uL (160-400); Red Blood Count 4.62 X10*6/uL (4.20-5.50); Red Cell Distribution Width 12.4 % (11.0-16.0); White Blood Count 4.5 X10*3/uL (4.8-10.8)
[2024-04-07 16:03] LABS: Alanine Aminotransferase 44 U/L (0-31); Albumin Level 4.2 g/dL (3.5-5.0); Alkaline Phosphatase 105 U/L (39-117); Anion Gap 11 (12-20); Aspartate Amino Transferase 36 U/L (5-31); Bilirubin Total 0.4 mg/dL (0.0-1.0); Blood Urea Nitrogen 15 mg/dL (9-16); Calcium 8.8 mg/dL (8.4-10.2); Carbon Dioxide 29 mmol/L (22-29); Chloride 105 mmol/L (96-108); Creatinine Clr Calc Pharmacy 58.7; Estimated Glomerular Filt Rate > 60; Glucose Random 95 mg/dL (60-115); Potassium 3.8 mmol/L (3.3-5.1); Sodium 141 mmol/L (135-145); Total Protein 7.5 g/dL (6.5-8.0)
--- OUTSIDE RECORDS SUMMARY | 2024-04-07 18:41 | XMS_ITS | Encounter Summary ---
Author Organization [employer] Address [address] [address] Care Team Providers Care Commercial Pest Control Representative Name Role Phone Eduardo Kimbrough MD Primary Care Provider [phone] Encounter Details Date Type Department Care Team (Latest Contact Info) Description 04/07/2024 Travel Social History Tobacco Use Types Packs/Day Years Used Date Smoking Tobacco: Never Smokeless Tobacco: Never Depression Answer Date Recorded Patient Health Questionnaire-9 Score 0 09/20/2023 Patient Health Questionnaire-9 Score 0 09/20/2023 Last PHQ-9: Questionnaire Data Not on file 0 09/20/2023 Depression Answer Date Recorded Patient Health Questionnaire-2 Score 0 09/20/2023 Comments Unknown Sex and Gender Information Value Date Recorded Sex Assigned at Female 01/12/2022 10:24 AM EDT Legal Sex Female 10:24 AM EDT Gender Identity Female 03/02/2022 11:00 AM EST Sexual Orientation Straight 01/12/2022 10 :24 AM EDT documented as of this encounter Plan of Treatment Not on file documented as of this encounter Visit Diagnoses Not on filedocumented in this encounter Additional Health Concerns Assessment Noted Time PHQ-9 Depression Total Score: 0 09/20/19 24 11:20 AM EDT documented as of this encounter Care Teams Commercial Pest Control Representative Relationship Specialty Start Date End Date Eduardo Kimbrough MD [address] [facility] [place] [id number] PCP - General Internal Medicine 04/13/13 documented as of this encounter
--- OUTSIDE RECORDS SUMMARY | 2024-04-07 18:41 | XMS_ITS | Encounter Summary ---
Author Organization [employer] Address [address] [place] [id number] Care Team Providers Care Setter Out Name Role Phone Eduardo Kimbrough MD Primary Care Provider [phone]- [phone] Reason for Visit * Reason Comments Med Refill Encounter Details Date Type Department Care Team ([facility] st Contact Info) Description 10/08/2023 Refill [facility] CHC MED & PEDS [address] [place] [address] Eduardo Kimbrough MD [address] [place] [address] Social History Tobacco Use Types Packs/Day Years [...] documented as of this encounter Care Teams Setter Out Relationship Specialty Start Date End Date Eduardo Kimbrough MD [address] [place] [id number] PCP - General Internal Medicine 04/13/13 documented as of this encounter
--- OUTSIDE RECORDS SUMMARY | 2024-04-07 18:41 | XMS_ITS | Encounter Summary ---
Author Organization [employer] Address [address] [facility] [address], [place] [address] Care Team Providers Care Medical Director/Head Team Physician Name Role Phone Eduardo Kimbrough MD Primary Care Provider [phone]- [phone] Encounter Details Date Type Department Care Team ([facility] st Contact Info) Description 06/11/2023 Orders Only [facility] CHC MED & PEDS [address] [place] [address] Eduardo Kimbrough MD [address] [place] [address] Social History Tobacco Use Types Packs/Day Years Used Date Smoking Tobacco: Never Smokeless Tobacco: Never Depression Answer Date Recorded Patient Health Questionnaire-9 Score 0 05/24/2023 Patient Health Questionnaire-9 Score 0 05/24/2023 Last PHQ-9: Questionnaire Data Not on file 0 05/24/2023 Depression Answer Date Recorded Patient Health Questionnaire-2 Score 0 05/24/2023 Comments Unknown Sex and Gender Information Value [...] Noted Time PHQ-9 Depression Total Score: 0 05/24/19 24 11:02 AM EDT documented as of this encounter Care Teams Medical Director/Head Team Physician Relationship Specialty Start Date End Date Eduardo Kimbrough MD [address] [place] [id number] PCP - General Internal Medicine 04/13/13 documented as of this encounter
--- OUTSIDE RECORDS SUMMARY | 2024-04-07 18:41 | XMS_ITS | Encounter Summary ---
Author Organization [employer] Address [address] [facility] [address] [place] [address] Care Team Providers Care Head Irrigator Name Role Phone Eduardo Kimbrough MD Primary Care Provider [phone]- [phone] Reason for Visit * Reason Onset Date Comments Walk-In 04/07/2024 Encounter Details Date Type Department Care Team ([facility] st Contact Info) Description 04/07/2024 Telephone [facility] CHC MED & PEDS [address] [place] [address] Eduardo Kimbrough MD 505 [place] [address] Walk-In Social History Tobacco Use Types Packs/Day Years [...] AM EDT documented as of this encounter Last Filed Vital Signs Vital Sign Reading Time Taken Comments Blood Pressure 116/78 04/07/2024 11:00 AM EST Pulse 75 04/07/2024 11:00 AM EST Temperature 37.1 ??C (98.8 ??F) 04/07/2024 11:[address] Respiratory Rate 16 04/07/2024 11:00 AM EST Oxygen Saturation 99% 04/07/2024 11:00 AM EST Inhaled Oxygen Concentration - - Weight - - Height - - Body Mass Index - - documented in this encounter Miscellaneous Notes * Telephone Encounter - Nataliia Campos, RN - 04/07/2024 12:24 PM EST Assessment: Patient presents to [place] c/o GRACY. Symptoms have been present for week. Symptoms are constant. Patient is taking (treatment/meds) inhaler, last used today at this morning. Recent ED visit or hospitalization: No. Sick since sat, has been using inhaler that cardoso snot been helping. Wants nebulizer treatment. [employer] was sick. Dry cough, congestion in chest and nose. Had throat pain. Is cold. Can't sleep and feel can't breath. 04/07/24 1100 Vital Signs Temp 98.8 ??F (37.1 ??C) Temp Source Oral Heart Rate 75 Heart Rate Source Monitor Resp 16 BP 116/78 BP Location Right arm BP Method Manual Patient Position Sitting Oxygen Therapy SpO2 99 % Allergies Allergen Reactions Acetaminophen Other reaction(s): Nausea/Vomiting Morphine Other reaction(s): Nausea/Vomiting Oxycodone Other reaction(s): Nausea/Vomiting Current Outpatient Medications Medication Sig Dispense Refill acetaminophen (Tylenol 8 Hour) 650 MG ER tablet take 1 tablet by oral route every 8 hours as neededswallowing whole with water. Do not break, crush, dissolve and/or chew. as needed alendronate (Fosamax) 70 MG tablet TAKE 1 TABLET ONCE A WEEK WITH 6 TO 8 OZ OF WATER 30 MINUTES BEFORE FIRST FOOD OF THE DAY. DO NOT LIE DOWN FOR 30 MINUTES. 4 tablet 11 ALPRAZolam (Xanax) 1 MG tablet Take 1-2 tablets (1-2 mg) by mouth if needed at bedtime for anxiety.60 tablet 5 cholecalciferol (Vitamin D-3) 100 MCG (4000 UT) capsule Take 1 capsule (100 mcg) by mouth in the morning. 90 capsule 3 clotrimazole (Lotrimin) 1 % cream apply by topical route 2 times every day to the affected and surrounding areas of skin in the morning and evening docusate sodium (Colace) 100 MG capsule take 1 capsule by oral route 2 times every day as needed for constipation Flovent HFA 220 MCG/ACT inhaler INHALE ONE PUFFS BY MOUTH TWICE DAILY 12 g 5 guaiFENesin-codeine (Robitussin-AC) 100-10 MG/5ML syrup Take 10 mL by mouth every 4 (four) hours. 100 mL 0 ibuprofen 800 MG tablet take 1 tablet (800MG) by oral route 2 times every day with food Strength: 800 mg 40 tablet 1 levothyroxine (Synthroid, Levoxyl) 88 MCG tablet TAKE ONE TABLET DAILY 30 tablet 11 montelukast (Singulair) 10 MG tablet TAKE ONE TABLET EVERY EVENING 30 tablet 11 predniSONE (Deltasone) 20 MG tablet 2 tabs once a day x 5 days 10 tablet 0 QUEtiapine (SEROquel) 100 MG tablet Take 2 tablets (200 mg) by mouth at bedtime. 180 tablet 3 silver sulfADIAZINE (Silvadene) 1 % cream apply by topical route 2 times every day a 1/16 inch (1.5mm) thick layer to entire burn area simvastatin (Zocor) 40 MG tablet TAKE ONE TABLET EVERY EVENING 60 tablet 11 No current facility-administered medications for this visit. Patient Active Problem List Diagnosis Date Noted MDD (major depressive disorder), recurrent, in partial remission ([facility]) 03/02/2022 Asthma 08/28/2020 Hypothyroidism 08/28/2020 Impaired fasting glucose 08/28/2020 Lumbar radiculopathy 08/28/2020 Epidermoid cyst 03/04/2018 Plan of care: Report to PCP Provider evaluation: Yes Patient to return to waiting room to await Provider evaluation in the order of arrival Nataliia Gasca RN * Telephone Encounter - Mery Fajardo - 04/07/2024 12:15 PM EST Patient in requesting to be seen. Pt has been sick since 04/03/24 with congestion, Asthma, fatigue, runny nose , weakness, headacke, head sinus. Pt lost her 11 yr old and pt just not well at all. Pt is in waiting room documented in this encounter Plan of Treatment Not on file documented as of this encounter Visit Diagnoses Not on filedocumented in this encounter Additional Health Concerns Assessment Noted Time PHQ-9 Depression Total Score: 0 09/20/19 24 11:20 AM EDT documented as of this encounter Care Teams Head Irrigator Relationship Specialty Start Date End Date Eduardo Kimbrough MD [address] [place] [id number] PCP - General Internal Medicine 04/13/13 documented as of this encounter
--- OUTSIDE RECORDS SUMMARY | 2024-04-07 18:41 | XMS_ITS | Clinical Summary ---
Author Organization [employer] Address [address] [place] [address] 7 [place] [address] Care Team Providers Care Roll Forming Machine Set Up Mechanic Name Role Phone Eduardo Kimbrough MD Primary Care Provider [phone]- [phone] Allergies Active Allergy Reactions Criticality Noted Date Comments Acetaminophen 02/26/2016 Other reaction(s): Nausea/Vomiting Morphine 05/30/2015 Other reaction(s): Nausea/Vomiting Oxycodone 02/26/2016 Other reaction(s): Nausea/Vomiting Medications * This document contains information received from the source organization and may not represent a complete record from that organization. acetaminophen (Tylenol 8 Hour) 650 MG ER tablet take 1 tablet by oral route every 8 hours as needed swallowing whole with water. Do not break, crush, dissolve and/or chew. as needed 1 Active clotrimazole (Lotrimin) 1 % cream apply by topical route 2 times every day to the affected and surrounding areas of skin in the morning and evening 1 Active docusate sodium (Colace) 100 MG capsule take 1 capsule by oral route 2 times every day as needed for constipation 1 Active silver sulfADIAZINE (Silvadene) 1 % cream apply by topical route 2 times every day a 1/16 inch (1.5 mm) thick layer to entire burn area 1 Active alendronate (Fosamax) 70 MG tablet TAKE 1 TABLET ONCE A WEEK WITH 6 TO 8 OZ OF WATER 30 MINUTES BEFORE FIRST FOOD OF THE DAY. DO NOT LIE DOWN FOR 30 MINUTES. 4 tablet 11 3 Active ibuprofen 800 MG tabletIndication s:Chronic pain syndrome take 1 tablet (800MG) by oral route 2 times every day with food Strength: 800 mg 40 tablet 1 3 Active Flovent HFA 220 MCG/ACT inhaler INHALE ONE PUFFS BY MOUTH TWICE DAILY 12 g 5 3 Active cholecalciferol (Vitamin D-3) 100 MCG (4000 UT) capsuleIndicatio ns:Vitamin D deficiency Take 1 capsule (100 mcg) by mouth in the morning. 90 capsule 3 4 Active ALPRAZolam (Xanax) 1 MG tablet Take 1-2 tablets (1-2 mg) by mouth if needed at bedtime for anxiety. 60 tablet 5 4 Active QUEtiapine (SEROquel) 100 MG tablet Take 2 tablets (200 mg) by mouth at bedtime. 180 tablet 3 4 Active montelukast (Singulair) 10 MG tablet TAKE ONE TABLET EVERY EVENING 30 tablet 11 4 Active simvastatin (Zocor) 40 MG tablet TAKE ONE TABLET EVERY EVENING 60 tablet 11 4 Active predniSONE (Deltasone) 20 MG tabletIndication s:Other cough,Moderate persistent asthma with acute exacerbation 2 tabs once a day x 5 days 10 tablet 4 Active guaiFENesin-code ine (Robitussin-AC) 100-10 MG/5ML syrupIndications :Moderate persistent asthma with acute exacerbation Take 10 mL by mouth every 4 (four) hours. 100 mL 4 Active levothyroxine (Synthroid, Levoxyl) 88 MCG tablet TAKE ONE TABLET DAILY 30 tablet 11 4 Active Active Problems Problem Noted Date Diagnosed Date MDD (major depressive disord er), recurrent, in partial remission 03/02/2022 Assessment & Plan (09/20/2023 12:06 PM EDT): Background: This patient has multiple risk factors for suicide: PTSD after attempted murder by ex on multiple occasions; completed suicide by several family members; prior suicide attempts; history of psychosis with command hallucinations. Strong family history of severe chronic mental illness. She benefits from the companionship and sense of purpose she gets from her disabled grandson. As she is getting older, we have been working on gradually decreasing her medications. Stable and doing well. Continue Seroquel 100 mg 2 tablets at bedtime and Alprazolam 1 mg 1-2 at bedtime. Since this provider will retiring, she is now transferred back to her PCP for further medication management. [facility] All her questions were answered and I have wished her well. She agrees with the plan. Assessment & Plan (05/24/2023 11:39 AM EDT): Background: This patient has multiple risk factors for suicide: PTSD after attempted murder by ex on multiple occasions; completed suicide by several family members; prior suicide attempts; history of psychosis with command hallucinations. Strong family history of severe chronic mental illness. She benefits from the companionship and sense of purpose she gets from her disabled grandson. As she is getting older, we have been working on gradually decreasing her medications. Stable and doing well. Continue Seroquel 100 mg 2 tablets at bedtime and Alprazolam 1 mg 1-2 at bedtime. On 01/21/2023 provider informed the patient that I would be retiring, but we would make every effort to ensure smooth transition of care. F/U with me in 2 months. She agrees with the plan. Assessment & Plan (03/23/2023 1:25 PM EST): Background: This patient has multiple risk factors for suicide: PTSD after attempted murder by ex on multiple occasions; completed suicide by several family members; prior suicide attempts; history of psychosis with command hallucinations. Strong family history of severe chronic mental illness. She benefits from the companionship and sense of purpose she gets from her disabled grandson. As she is getting older, we have been working on gradually decreasing her medications. Stable and doing well. Continue Seroquel 100 mg 2 tablets at bedtime and Alprazolam 1 mg 1-2 at bedtime. On 01/21/2023 provider informed the patient that I would be retiring, but we would make every effort to ensure smooth transition of care. F/U with me in 2 months. She agrees with the plan. Assessment & Plan (01/21/2023 1:42 PM EST): Background: This patient has multiple risk factors for suicide: PTSD after attempted murder by ex on multiple occasions; completed suicide by several family members; prior suicide attempts; history of psychosis with command hallucinations. Strong family history of severe chronic mental illness. She benefits from the companionship and sense of purpose she gets from her disabled grandson. As she is getting older, we have been working on gradually decreasing her medications. Again stable and doing well. Continue Seroquel 100 mg 1.5 tablets at bedtime and Alprazolam 1 mg 1-2 at bedtime. Today 01/21/2023 provider informed the patient that I would be retiring within the next year or so, but we would make every effort to ensure smooth transition of care. F/U with me in 2 months. She agrees with the plan. Assessment & Plan (10/20/2022 11:42 AM EDT): Background: This patient has multiple risk factors for suicide: PTSD after attempted murder by ex on multiple occasions; completed suicide by several family members; prior suicide attempts; history of psychosis with command hallucinations. She benefits from the companionship and sense of purpose she gets from her disabled grandson. As she is getting older, we have been working on gradually decreasing her medications. Again stable and doing well. Continue Seroquel 100 mg 2 at bedtime and Alprazolam 1 mg 1-2 at bedtime. F/U with me in 3 months. She agrees with the plan. Assessment & Plan (09/16/2022 2:56 PM EDT): Patient withconstant worry, crying spells, fear. Difficulty sleeping, trouble concentrating and restlessness. She reports sxs started less than a week ago when one of her sons left the [facility] to go to [place] following ex partner and their son. She indicates that her concern for his safety and wellbeing in a strange state has impacted her mental wellbeing. Patient will benefit from adhrance to current psych medication management treatment, as well as practicing coping skills and activities discussed during intervention. At this time Katie Mcintyre meets criteria for Visit Diagnoses: Problem List Items Addressed This Visit Other MDD (major depressive disorder), recurrent, in partial remission ([facility]) Assessment & Plan (08/04/2022 2:20 PM EDT): Background: This patient has multiple risk factors for suicide: PTSD after attempted murder by ex on multiple occasions; completed suicide by several family members; prior suicide attempts; history of psychosis with command hallucinations. She benefits from the companionship and sense of purpose she gets from her disabled grandson. As she is getting older, we have been working on gradually decreasing her medications. Not doing as well, family stressors. Would like counseling but has not been able to access r/t limited insurance. Will request contact by [facility] clinician. No med changes at this time, but urged to take every day. F/U with me in 2 months. She agrees with the plan. Assessment & Plan (06/01/2022 10:55 AM EDT): Background: This patient has multiple risk factors for suicide: PTSD after attempted murder by ex on multiple occasions; completed suicide by several family members; prior suicide attempts; history of psychosis with command hallucinations. She benefits from the companionship and sense of purpose she gets from her disabled grandson. As she is getting older, we have been working on gradually decreasing her medications. Sleeping better with medications. Will continue current regimen. Cautioned re excessive sedation, dizziness and risk of falls. F/U with me in 2 months. She agrees with the plan. Assessment & Plan (03/02/2022 11:52 AM EST): Background: This patient has multiple risk factors for suicide: PTSD after attempted murder by ex on multiple occasions; completed suicide by several family members; prior suicide attempts; history of psychosis with command hallucinations. She benefits from the companionship and sense of purpose she gets from her disabled grandson. As she is getting older, we have been working on gradually decreasing her medications. Sleeping better with medications. Will continue current regimen. Cautioned re excessive sedation, dizziness and risk of falls. F/U with me in 3 months. She agrees with the plan. Asthma 08/28/2020 Hypothyroidism 08/28/2020 Impaired fasting glucose 08/28/2020 Lumbar radiculopathy 08/28/2020 Epidermoid cyst 03/04/2018 Encounters Date Type Department Care Team Description 04/07/2024 1:20 PM EST Office Visit [facility] MED & PEDS [address] [place] [address] Eduardo Kimbrough MD COVID-19 (Primary Dx); Influenza A 04/07/2024 Travel 04/07/2024 Telephone [facility] MED & PEDS [address] [place] [address] Eduardo Kimbrough MD Walk-In 01/07/2024 Refill [facility] MED & PEDS [address] [place] [address] Eduardo Kimbrough MD from Last 3 Months Immunizations Name Administration Dates Next Due Influenza injectable quadriv alent IIV4 with preservative 01/13/2016 Influenza injectable quadriv alent preservative free 01/04/2015 Influenza, IIV3, injectable 12/01/2013 Moderna Covid-19 Vaccine 12+ 04/04/2021,06/14/19,05/16/2020 Pneumococcal Polysaccharide PPSV23 12/01/2013 Social History Tobacco Use Types Packs/Day Years Used Date Smoking Tobacco: Never Smokeless Tobacco: Never Tobacco Cessation:Counseling Given: No Depression Answer Date Recorded Patient Health Questionnaire-9 [...] Orientation Straight 01/12/2022 10 :24 AM EDT Last Filed Vital Signs Vital Sign Reading Time Taken Comments Blood Pressure 130/74 04/07/2024 1:08 PM EST Pulse 73 04/07/2024 1:08 PM EST Temperature 36.8 ??C (98.2 ??F) 04/07/2024 1:08 PM ES T Respiratory Rate 20 04/07/2024 1:08 PM EST Oxygen Saturation 98% 04/07/2024 1:08 PM EST Inhaled Oxygen Concentration - - Weight 71.7 kg (158 lb) 04/07/2024 1:08 PM EST Height 160 cm (5' 3 ) 04/07/2024 1:08 PM EST Body Mass Index 27.99 04/07/2024 1:08 PM EST Plan of Treatment Health Maintenance Due Date Last Done Comments SDOH Screening 1945 Alcohol/Substance Use Screening 1959 Hepatitis C Screening 06/25/1965 DTaP/Tdap/Td Vaccines (1 - Tdap) 06/25/1966 Zoster Vaccines (1 of 2) 06/25/1997 Pneumococcal Vaccine: 65+ Years (2 of 2 - PCV) 12/01/2014 12/01/2013 RSV Patients and Patients Aged 60 years or older (1 - 1-dose 75+ series) 06/25/2022 COVID-19 Vaccine (4 - 2023-2 5 season) 2023 04/04/2021, 06/13/2020, 05/16/2020 Influenza Vaccine (#1) 2023 6, 01/04/2015, 12/01/2013 Depression Screening 09/19/2024 09/20/2023, 09/20/2023 Tobacco Screening 04/07/2025 04/07/2024 HIB Vaccines Aged Out No longer eligi ble based on patient's age to complete this topic HPV Vaccines Aged Out No longer eligi ble based on patient's age to complete this topic Hepatitis A Vaccines Aged Out No long er eligible based on patient's age to complete this topic Hepatitis B Vaccines Aged Out No long er eligible based on patient's age to complete this topic IPV Vaccines Aged Out No longer eligi ble based on patient's age to complete this topic Meningococcal Vaccine Aged Out No lacey divya eligible based on patient's age to complete this topic RSV under 20 months Aged Out No longe r eligible based on patient's age to complete this topic Rotavirus Vaccines Aged Out No longer eligible based on patient's age to complete this topic Procedures Procedure Name Priority Date/Time Associated Diagnosis Comments POCT RAPID STREP A Routine 04/07/2024 1: 35 PM EST COVID-19 Influenza A POCT INFLUENZA B Routine 04/07/2024 1:35 PM EST COVID-19 Influenza A POCT INFLUENZA A Routine 04/07/2024 1:35 PM EST COVID-19 Influenza A POCT RAPID COVID ANTIGEN Routine 04/07/2024 1:34 PM EST COVID-19 Influenza A from Last 3 Months Results * POCT Rapid Influenza B OSOM (04/07/2024 1:35 PM EST) [facility] Rapid Influenza B Ag Negative Negative, Indeterminate QC Media Lot # [id number] Lot# Expiration Date ,025 Swab 04/07/2024 1:35 PM EST Eduardo Kimbrough MD POINT OF CARE TEST ENTER/ED IT ORDERABLES Final Result * (ABNORMAL) POCT Rapid Influenza A OSOM (04/07/2024 1:35 PM EST) [facility] Rapid Influenza A Ag Positive( A) Negative, Indeterminate QC Media Lot # [id number] Lot# Expiration Date ,025 Swab Nasopharyngeal structure / Unknown 04/07/2024 1:35 PM EST Result [facility] Eduardo Kimbrough MD POINT OF CARE TEST ENTER/ED IT ORDERABLES Final Result * POCT Rapid Strep A OSOM (04/07/2024 1:35 PM EST) [facility] Rapid Strep A Screen Negative Negative, None Detected QC Media Lot # [id number] Lot# Expiration Date ,025 Swab 04/07/2024 1:35 PM EST Eduardo Kimbrough MD POINT OF CARE TEST ENTER/ED IT ORDERABLES Final Result * (ABNORMAL) POCT Rapid Covid-19 BinaxNOW (04/07/2024 1:34 PM EST) [facility] Rapid COVID Ag Positive QC Media Lot # [id number] Lot# Expiration Date [id number] Swab 04/07/2024 1:34 PM EST Eduardo Kimbrough MD POINT OF CARE TEST ENTER/ED IT ORDERABLES Final Result from Last 3 Months Insurance [employer] MED[employer]ARE REPLACEMENT Care Teams Roll Forming Machine Set Up Mechanic Relationship Specialty Start Date End Date Eduardo Kimbrough MD [address] [place] [address] [place] [id number] PCP - General Internal Medicine 04/13/13
--- OUTSIDE RECORDS SUMMARY | 2024-04-07 18:41 | XMS_ITS | Encounter Summary ---
Author Organization [employer] Address [address] [place] [address] Care Team Providers Care Auricular Therapist Name Role Phone Eduardo Kimbrough MD Primary Care Provider [phone] Reason for Visit * Reason Comments Med Refill Encounter Details Date Type Department Care Team (Late st Contact Info) Description 12/01/2022 Refill [facility] [address] [place] [id number] Ariel Chavez FNP Major depressive disorder, recurrent, in partial remission (CMS/HCC) Social History Tobacco Use Types Packs/Day Years Used Date Smoking Tobacco: Never Smokeless Tobacco: Never Depression Answer Date Recorded Patient Health Questionnaire-9 Score 0 10/20/2022 Depression Answer Date Recorded Patient Health Questionnaire-2 Score 0 10/20/2022 Comments Unknown Sex and Gender Information Value Date Recorded Sex Assigned at Female 01/12/2022 10:24 AM EDT Legal Sex Female 10:24 AM EDT Gender Identity Female 03/02/2022 11:00 AM EST Sexual Orientation Straight 01/12/2022 10 :24 AM EDT documented as of this encounter Plan of Treatment Not on file documented as of this encounter Visit Diagnoses Diagnosis Major depressive disorder, recurrent, in partial remission (CMS/HCC) documented in this encounter Additional Health Concerns Assessment Noted Time PHQ-9 Depression Total Score: 0 10/21/19 23 10:30 AM EDT documented as of this encounter Care Teams Auricular Therapist Relationship Specialty Start Date End Date Eduardo Kimbrough MD [address] [facility] [place] [address] PCP - General Internal Medicine 04/13/13 documented as of this encounter
[2024-04-07 20:00] VITALS: BP 123/68; PULSE 74; RESP 18; TEMP 36.9; O2SAT 96
[2024-04-07] MEDS: predniSONE 20 MG TABLET 40 MG PO (20:20)
[2024-04-07] MEDS: Azithromycin 500 MG TABLET PO (20:20)
[2024-04-07] MEDS: Benzonatate 100 MG CAPSULE 200 MG PO (20:20)
[2024-04-07 20:25] VITALS: BP 123/68; PULSE 74; RESP 18; TEMP 36.9; O2SAT 96
== END 2024-04-07 20:25 | disposition home or self-care (01) ==
PROVIDERS: Registered Nurse Emergency; Emergency Provider Emergency Medicine Emergency Medical Services; PCP Internal Medicine
DX: U07.1 COVID-19 (principal); J10.1 Influenza due to other identified influenza virus with other respiratory manifestations; J40 Bronchitis, not specified as acute or chronic; J45.41 Moderate persistent asthma with (acute) exacerbation; Z79.899 Other long term (current) drug therapy
CPT/HCPCS: 36415; 71046; 80053; 85025; 99283

== ENCOUNTER → 2024-04-07 15:01 | Outpatient (BNV) | payer MEDICARE, SELFPAY | PROVIDERS: PCP Internal Medicine; Visit Provider Radiology Diagnostic Radiology | DX: R06.2 Wheezing (principal) | CPT/HCPCS: 71046 ==

== ENCOUNTER 2024-06-14 14:32 | Outpatient (REF) | payer MEDICARE, SELFPAY ==
--- OUTSIDE RECORDS SUMMARY | 2024-06-14 17:15 | XMS_ITS | Encounter Summary ---
Author Organization [employer] Address [address] [place] [address] Care Team Providers Care Manufacturing Finance Manager Name Role Phone Eduardo Kimbrough MD Primary Care Provider [phone]- [phone] Reason for Visit * Reason Comments Med Refill Encounter Details Date Type Department Care Team ([facility] Contact Info) Description 10/08/2023 Refill [facility] MED & PEDS [address] [place] [address] Eduardo Kimbrough MD [address] [place] [address] Social History Tobacco Use Types Packs/Day Years [...] as of this encounter Plan of Treatment Upcoming Encounters Date Type Department Care Team ([facility] Contact Info) Description 07/13/2024 1:00 PM EDT Office Visit [facility] MED & PEDS [address] [place] [address] Eduardo Kimbrough MD [address] [place] [address] documented as of this encounter Visit Diagnoses Not on filedocumented in this encounter Additional Health Concerns Assessment Noted Time PHQ-9 Depression Total Score: 0 09/20/19 24 11:20 AM EDT documented as of this encounter Care Teams Manufacturing Finance Manager Relationship Specialty Start Date End Date Eduardo Kimbrough MD [address] [place] [address] PCP - General Internal Medicine 04/13/13 documented as of this encounter
--- OUTSIDE RECORDS SUMMARY | 2024-06-14 17:15 | XMS_ITS | Encounter Summary ---
Author Organization [employer] Address [address] [facility] 7 [place] [address] Care Team Providers Care Surface Plate Inspector Name Role Phone Eduardo Kimbrough MD Primary Care Provider [phone]- [phone] Reason for Visit * Reason Onset Date Comments Walk-In 06/14/2024 Encounter Details Date Type Department Care Team ([facility] st Contact Info) Description 06/14/[address] [facility] MED & PEDS [address] [place] [address] Eduardo Kimbrough MD [address] [place] [address] Walk-In Social History Tobacco Use Types Packs/Day Years Used Date Smoking Tobacco: Never Smokeless Tobacco: Never Depression Answer Date Recorded Patient Health Questionnaire-9 Score 18 06/14/2024 Patient Health Questionnaire-9 Score 18 06/14/2024 Last PHQ-9: Questionnaire Data Not on file 0 06/14/2024 Depression Answer Date Recorded Patient Health Questionnaire-2 Score 6 06/14/2024 Comments Unknown Sex and Gender Information Value Date Recorded Sex Assigned at Female 01/12/2022 10:24 AM EDT Legal Sex Female 10:24 AM EDT Gender Identity Female 03/02/2022 11:00 AM EST Sexual Orientation Straight 01/12/2022 10 :24 AM EDT documented as of this encounter Miscellaneous Notes * Telephone Encounter - Princess Kang - 06/14/2024 2:03 PM EDT Pt walked in stating she has been having chest pain. 3xdays Pt is here sitting in waiting area. documented in this encounter Plan of Treatment Upcoming Encounters Date Type Department Care Team (Late st Contact Info) Description 07/13/2024 1:00 PM EDT Office Visit [facility] MED & PEDS [address] [place] [address] Eduardo Kimbrough MD [address] [place] [address] documented as of this encounter Visit Diagnoses Not on filedocumented in this encounter Additional Health Concerns Assessment Noted Time PHQ-9 Depression Total Score: 18 025 4:12 PM EDT documented as of this encounter Care Teams Surface Plate Inspector Relationship Specialty Start Date End Date Eduardo Kimbrough MD [address] [place] [address] PCP - General Internal Medicine 04/13/13 documented as of this encounter
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
--- OUTSIDE RECORDS SUMMARY | 2024-06-14 17:15 | XMS_ITS | Encounter Summary ---
Author Organization [employer] Address [address] [facility] [address], [place] [address] Care Team Providers Care Svp Monetization Name Role Phone Eduardo Kimbrough MD Primary Care Provider +1- [phone] Reason for Visit * Reason Onset Date Comments Chest Pain 06/14/2024 Encounter Details Date Type Department Care Team ([facility] st Contact Info) Description 06/14/2024 Telephone [facility] MED & PEDS [address] [place] [address] Eduardo Kimbrough MD [address] [place] [address] Chest Pain Social History Tobacco Use Types Packs/Day Years [...] encounter Miscellaneous Notes * Telephone Encounter - Shantel Negro RN - 06/14/2024 2:30 PM EDT Pt walked into office today with complaint of chest pain over past 2-3 days. No apparent signs of respiratory distress. Complained of pain starting in left shoulder and radiating down to chest. Pt stated started taking levothyroxine in morning and at night before bed and started taking extra doses for past two days. BP 136/68. HR 74. O2 sat 99% room air. Temp 97.7 F. ECG performed and reviewed with provider. ECG sinus rhythm, pt scheduled for same day care appointment. Pt verbalized understanding and agreement with plan. documented in this encounter Plan of Treatment Upcoming Encounters Date Type Department Care Team (Late st Contact Info) Description 07/13/2024 1:00 PM EDT Office Visit [facility] MED & PEDS [address] [place] [address] Eduardo Kimbrough MD [address] [place] [address] documented as of this encounter Visit Diagnoses Not on filedocumented in this encounter Additional Health Concerns Assessment Noted Time PHQ-9 Depression Total Score: 18 025 4:12 PM EDT documented as of this encounter Care Teams Svp Monetization Relationship Specialty Start Date End Date Eduardo Kimbrough MD [address] [place] [address] PCP - General Internal Medicine 04/13/13 documented as of this encounter
--- OUTSIDE RECORDS SUMMARY | 2024-06-14 17:15 | XMS_ITS | Encounter Summary ---
Author Organization [employer] Address [address] [place] [address] Care Team Providers Care Roadside Mechanic Name Role Phone Eduardo Kimbrough MD Primary Care Provider +1- [phone] Reason for Visit * Reason Comments Med Refill Encounter Details Date Type Department Care Team ([facility] Contact Info) Description 06/14/2024 Refill [facility] MED & PEDS [address] [place] [address] Eduardo Kimbrough MD [address] [place] [address] Social History Tobacco Use Types Packs/Day Years [...] Upcoming Encounters Date Type Department Care Team ([facility] Contact Info) Description 07/13/2024 1:00 PM EDT Office Visit [facility] MED & PEDS [address] [place] [address] Eduarod Kimbrough MD [address] [place] [address] documented as of this encounter Visit Diagnoses Not on filedocumented in this encounter Additional Health Concerns Assessment Noted Time PHQ-9 Depression Total Score: 18 025 4:12 PM EDT documented as of this encounter Care Teams Roadside Mechanic Relationship Specialty Start Date End Date Eduardo Kimbrough MD [address] [place] [address] PCP - General Internal Medicine 04/13/13 documented as of this encounter
--- OUTSIDE RECORDS SUMMARY | 2024-06-14 17:15 | XMS_ITS | Encounter Summary ---
Author Organization [employer] Address [address] [place] [address] Care Team Providers Care Shop Manager Name Role Phone Eduardo Kimbrough MD Primary Care Provider [phone] Reason for Referral * Consultation (Routine) - Pending Review Specialty Diagnoses / Procedures Referred By Britany santos Referred To Contact Cardiology Diagnoses Other chest pain Eduardo Kimbrough MD [address] [place] [address] Phone: tel: fax: Referral ID Status Reason Start Date Expiration Date Visits Requested Visits Authorized [id number] Pending Review Specialty Services Required 06/14/2024 06/14/2025 1 1 * Consultation (Routine) - Authorized Specialty Diagnoses / Procedures Referred By Britany santos Referred To Contact Behavioral Health Diagnoses MDD (major depressive disorder), recurrent, in partial remission (CMS/HCC) Eduardo Kimbrough MD [address] [place] [address] Phone: tel: fax: Referral ID Status Reason Start Date Expiration Date Visits Requested Visits Authorized [id number] Authorized Specialty Services Required 06/14/2024 06/14/2025 1 1 Reason for Visit * Reason Comments Chest Pain Encounter Details Date Type Department Care Team (Latest Contact Info) Description 06/14/2024 2:40 PM EDT Office Visit [facility] [address] [place] [address] Eduardo Kimbrough MD [address] [place] [address] Other chest pain (Primary Dx); MDD (major depressive disorder), recurrent, in partial remission (CMS/HCC); Other specified hypothyroidism Social History Tobacco Use Types Packs/Day Years [...] Mass Index 28.7 06/14/2024 3:22 PM EDT documented in this encounter Progress Notes * Eduardo Kimbrough MD - 06/14/2024 2:40 PM EDT Subjective Patient ID: Katie Flores is a 78 y.o. female who presents for Chest Pain. HPI Note from triage reviewed: Pt walked into office today with complaint of chest pain over past 2-3 days. No apparent signs of respiratory distress. Complained of pain starting in left shoulder and radiating down to chest. Pt stated started taking levothyroxine in morning and at night before bed and started taking extra dosesfor past two days. BP 136/68. HR 74. O2 sat 99% room air. Temp 97.7 F. ECG performed and reviewed with provider. ECG sinus rhythm, pt scheduled for same day care appointment. Pt verbalized understanding and agreement with plan. Patient is complaining of a chest pain that started 3 days ago. The pain is constant and fluctuates. Has it mostly in the evening. Not associated with shortness of breath/palpitations/paroxysmal nocturnal dyspnea. No reported fever or other constitutional symptoms. Was tearful during the encounter and complains of feeling anxious and depressed especially after the of her grandson. Was not able to start psychotherapy because of insurance issues. Patient Active Problem List Diagnosis Asthma Epidermoid cyst Hypothyroidism Impaired fasting glucose Lumbar radiculopathy MDD (major depressive disorder), recurrent, in partial remission (CMS/[facility]) Allergies Allergen Reactions Acetaminophen Other reaction(s): Nausea/Vomiting Morphine Other reaction(s): Nausea/Vomiting Oxycodone Other reaction(s): Nausea/Vomiting Current Outpatient Medications on File Prior to Visit Medication Sig Dispense Refill acetaminophen (Tylenol 8 [...] if needed at bedtime for anxiety.60 tablet 0 cholecalciferol (Vitamin D-3) 100 MCG (4000 UT) [...] by mouth at bedtime. 180 tablet 3 senna (Senokot) 8.6 MG tablet Take 2 tablets by mouth at bedtime. silver sulfADIAZINE (Silvadene) 1 % cream apply by topical route 2 times every day a 1/16 inch (1.5mm) thick layer to entire burn area simvastatin (Zocor) 40 MG tablet TAKE ONE TABLET EVERY EVENING 60 tablet 11 No current facility-administered medications on file prior to visit. Review of Systems Constitutional: Negative for appetite change, chills and diaphoresis. Eyes: Negative for pain, redness and itching. Respiratory: Negative for cough and choking. Cardiovascular: Positive for chest pain. Negative for palpitations. Genitourinary: Negative for flank pain and frequency. Objective BP 136/68 (BP Location: Left arm, Patient Position: Sitting, BP Cuff Size: Adult) Pulse 74 Temp97.7 ??F (36.5 ??C) (Oral) Resp 20 Ht 5' 3 (1.6 m) Wt 162 lb (73.5 kg) SpO2 99% BMI 28.70 kg/m?? Physical Exam Constitutional: General: She is not in acute distress. Appearance: Normal appearance. She is not ill-appearing, toxic-appearing or diaphoretic. Cardiovascular: Rate and Rhythm: Normal rate and regular rhythm. Pulmonary: Effort: Pulmonary effort is normal. Musculoskeletal: Comments: No skin rash Tenderness to palpation of the left upper anterior chest. Neurological: Mental Status: She is alert. Assessment/Plan Diagnoses and all orders for this visit: Other chest pain Comments: EKG normal Possible costochondritis Referral to cardiology to consider stress test if needed. Orders: - ECG 12 lead - Referral to Cardiology; Future - CBC auto differential; Future - Basic Metabolic Panel; Future - TSH W/Reflex to FT4; Future MDD (major depressive disorder), recurrent, in partial remission (CMS/HCC) Comments: Behavioral called for brief intervention Patient will greatly benefit from psychotherapy. Orders: - Referral to Behavioral Health; Future Other specified hypothyroidism - CBC auto differential; Future - Basic Metabolic Panel; Future - TSH W/Reflex to FT4; Future documented in this encounter Plan of Treatment Upcoming Encounters Date Type Department Care Team (Late st Contact Info) Description 07/13/2024 1:00 PM EDT Office Visit [facility] [address] [place], [place] [phone] Eduardo Kimbrough MD [address] [place] [address] Scheduled Orders Name Type Priority Associated Diagnoses Orde r Schedule CBC auto differential Lab Routine Other chest pain Other specified hypothyroidism Expected: 06/14/2024 (Approximate), Expires: 06/14/2025 Basic Metabolic Panel Lab Routine Other chest pain Other specified hypothyroidism Expected: 06/14/2024 (Approximate), Expires: 06/14/2025 TSH W/Reflex to FT4 Lab Routine Other chest pain Other specified hypothyroidism Expected: 06/14/2024 (Approximate), Expires: 06/14/2025 Scheduled Referrals Name Type Priority Associated Diagnoses Order Schedule Referral to Behavioral Health Outpatient Referral Routine MDD (major depressive disorder), recurrent, in partial remission (CMS/HCC) Expected: 06/14/2024 (Approximate), Expires: 06/14/2025 Referral to Cardiology Outpatient Referral Routine Other chest pain Expected: 06/14/2024 (Approximate), Expires: 06/14/2025 documented as of this encounter Procedures Procedure Name Priority Date/Time Associated Diagnosis Comments ECG 12-LEAD Routine 06/14/2024 3:31 PM EDT Other chest pain documented in this encounter Results * ECG 12 lead (06/14/2024 3:31 PM EDT) Narrative Eduardo Kimbrough MD - 06/14/2024 3:31 PM EDT Heart rate 67 bpm. ??[place] 41 degrees. ??Normal sinus rhythm. ??No sign of left atrial enlargement or right atrial enlargement. ??No hypertrophy. ??No ST elevation or ST depression. ??Normal EKG. us Eduardo Kimbrough MD ECG ORDERABLES Final Resul t documented in this encounter Visit Diagnoses Diagnosis Other chest pain- Primary MDD (major depressive disorder), recurrent, in partial remission (CMS/HCC) Other specified hypothyroidism documented in this encounter Additional Health Concerns Assessment Noted Time PHQ-9 Depression Total Score: 18 025 4:12 PM EDT documented as of this encounter Care Teams Shop Manager Relationship Specialty Start Date End Date Eduardo Kimbrough MD [address] [place] [address] PCP - General Internal Medicine 04/13/13 documented as of this encounter
--- OUTSIDE RECORDS SUMMARY | 2024-06-14 17:15 | XMS_ITS | Encounter Summary ---
Author Organization [employer] Address [address] [place] [address] Care Team Providers Care Public Safety Director Name Role Phone Eduardo Kimbrough MD Primary Care Provider [phone]- [phone] Encounter Details Date Type Department Care Team ([facility] Contact Info) Description 06/11/2023 Orders Only [facility]S [address] [place] [address] Eduardo Kimbrough MD [address] [place] [address] Social History Tobacco Use Types Packs/Day Years [...] Upcoming Encounters Date Type Department Care Team ([facility] Contact Info) Description 07/13/2024 1:00 PM EDT Office Visit [facility] [address] [place], [place] [phone] Eduardo Kimbrough MD [address] [place] [address] documented as of this encounter Visit Diagnoses Not on filedocumented in this encounter Additional Health Concerns Assessment Noted Time PHQ-9 Depression Total Score: 0 05/24/19 24 11:02 AM EDT documented as of this encounter Care Teams Public Safety Director Relationship Specialty Start Date End Date Eduardo Kimbrough MD [address] [place] [address] PCP - General Internal Medicine 04/13/13 documented as of this encounter
--- OUTSIDE RECORDS SUMMARY | 2024-06-14 17:15 | XMS_ITS | Encounter Summary ---
Author Organization [employer] Address [address] [place] [address] Care Team Providers Care Clinical Unit Coordinator Name Role Phone Eduardo Kimbrough MD Primary Care Provider [phone] Reason for Visit * Reason Comments Med Refill Encounter Details Date Type Department Care Team (Late Contact Info) Description 12/01/2022 Refill [facility] [address] [place] [address] Ariel Chavez FNP Major depressive disorder, recurrent, [...] Encounters Date Type Department Care Team (Late Contact Info) Description 07/13/2024 1:00 PM EDT Office Visit [facility] PEDS [address] [place], [place] [phone] Eduardo Kimbrough MD [address] [place] [address] documented as of this encounter Visit Diagnoses Diagnosis Major depressive disorder, recurrent, in partial remission (CMS/HCC) documented in this encounter Additional Health Concerns Assessment Noted Time PHQ-9 Depression Total Score: 0 10/21/19 23 10:30 AM EDT documented as of this encounter Care Teams Clinical Unit Coordinator Relationship Specialty Start Date End Date Eduardo Kimbrough MD [address] [place] [address] PCP - General Internal Medicine 04/13/13 documented as of this encounter
--- OUTSIDE RECORDS SUMMARY | 2024-06-14 17:15 | XMS_ITS | Encounter Summary ---
Author Organization [employer] Address [address] [place] [address] Care Team Providers Care Cardiovascular Surgical Tech Name Role Phone Eduardo Kimbrough MD Primary Care Provider [phone]- [phone] Encounter Details Date Type Department Care Team (Latest Contact Info) Description 06/14/2024 Travel Social History Tobacco Use Types Packs/Day [...] Description 07/13/2024 1:00 PM EDT Office Visit [facility] PEDS [address] [place] [address] Eduardo Kimbrough MD [address] [place] [address] documented as of this encounter Visit Diagnoses Not on filedocumented in this encounter Additional Health Concerns Assessment Noted Time PHQ-9 Depression Total Score: 18 025 4:12 PM EDT documented as of this encounter Care Teams Cardiovascular Surgical Tech Relationship Specialty Start Date End Date Eduardo Kimbrough MD [address] [place] [address] PCP - General Internal Medicine 04/13/13 documented as of this encounter
[2024-06-14 18:03] LABS: MANUAL DIFF FLAG NO
[2024-06-14 18:37] LABS: Alanine Aminotransferase 13 U/L (0-31); Albumin Level 4.3 g/dL (3.5-5.0); Alkaline Phosphatase 89 U/L (39-117); Anion Gap 10 (12-20); Aspartate Amino Transferase 18 U/L (5-31); Bilirubin Total 0.4 mg/dL (0.0-1.0); Blood Urea Nitrogen 15 mg/dL (9-16); Calcium 9.3 mg/dL (8.4-10.2); Carbon Dioxide 27 mmol/L (22-29); Chloride 108 mmol/L (96-108); Estimated Glomerular Filt Rate > 60; Glucose Random 96 mg/dL (60-115); Sodium 141 mmol/L (135-145)
[2024-06-14 18:50] LABS: Basophils Percent Auto 0.5 % (0-2); Eosinophils Absolute Auto 0.4 X10*3/uL (0.0-0.4); Eosinophils Percent Auto 5.7 % (0-4); Hematocrit 40.2 % (37.0-47.0); Hemoglobin 13.3 g/dl (12.0-16.0); Imm Gran Abs Auto 0.02 X10*3/uL (0.00-0.03); Imm Gran Pct Auto 0.3 % (0.0-0.4); Lymphocytes Absolute Auto 2.1 X10*3/uL (1.2-4.9); Mean Corpuscular HGB Conc 33.1 g/dl (31.0-35.0); Mean Corpuscular Volume 90.7 fL (80.0-98.0); Mean Platelet Volume 9.1 fL (9.4-12.3); Monocytes Absolute Auto 0.5 X10*3/uL (0.1-1.2); Monocytes Percent Auto 8.1 % (2-11); Neutrophils Absolute Auto 3.2 x10*3/uL (2.0-8.3); Neutrophils Percent Auto 51.4 % (45-73); Platelet Count 236 X10*3/uL (160-400); Red Blood Count 4.43 X10*6/uL (4.20-5.50); Red Cell Distribution Width 12.6 % (11.0-16.0); White Blood Count 6.3 X10*3/uL (4.8-10.8)
[2024-06-14 18:54] LABS: Vitamin D 25-OH Total 29.1 ng/mL (>30)
[2024-06-14 19:05] LABS: Folate 12.1 ng/mL (> or = 4.0); Vitamin B12 608 pg/mL (200-900)
[2024-06-14 20:44] LABS: Free T4 (Free Thyroxine) 1.38 ng/dL (0.71-1.85)
== END 2024-06-14 14:33 | disposition home or self-care (01) ==
LOC: HO.CHCLDS 14:32
PROVIDERS: Visit Provider Internal Medicine
DX: E03.8 Other specified hypothyroidism (principal); F33.41 Major depressive disorder, recurrent, in partial remission; R53.83 Other fatigue; R73.01 Impaired fasting glucose
CPT/HCPCS: 36415; 80053; 82306; 82607; 82746; 83735; 84439; 84443; 85025

== ENCOUNTER 2024-07-25 09:14 | Outpatient (REF) | payer MEDICARE, SELFPAY ==
--- OUTSIDE RECORDS SUMMARY | 2024-07-25 09:42 | XMS_ITS | Encounter Summary ---
Author Organization [employer] Address [address] [place] [address] Care Team Providers Care Catcher Filter Tip Name Role Phone Eduardo Kimbrough MD Primary Care Provider [phone]- [phone] Encounter Details Date Type Department Care Team ([facility] Contact Info) Description 06/11/2023 Orders Only [facility] [address] [place] [address] Eduardo Kimbrough MD [address] [place] [address] Social History Tobacco Use Types Packs/Day Years [...] Upcoming Encounters Date Type Department Care Team ([facility] Contact Info) Description 10/23/2024 2:30 PM EDT Office Visit [facility] P[facility] [address] [place], [place] [phone] Eduardo Kimbrough MD [address] [place] [address] documented as of this encounter Visit Diagnoses Not on filedocumented in this encounter Additional Health Concerns Assessment Noted Time PHQ-9 Depression Total Score: 0 05/24/19 24 11:02 AM EDT documented as of this encounter Care Teams Catcher Filter Tip Relationship Specialty Start Date End Date Eduardo Kimbrough MD [address] [place] [address] PCP - General Internal Medicine 04/13/13 documented as of this encounter
--- OUTSIDE RECORDS SUMMARY | 2024-07-25 09:42 | XMS_ITS | Encounter Summary ---
Author Organization [employer] Address [address] [place] [address] Care Team Providers Care Sourcing Intern Name Role Phone Eduardo Kimbrough MD Primary Care Provider +[phone]- [phone] Reason for Visit * Reason Comments Med Refill Encounter Details Date Type Department Care Team ([facility] Contact Info) Description 10/08/2023 Refill [facility] [address] [place] [address] Eduardo Kimbrough MD [address] [place] [address] Social History Tobacco Use Types Packs/Day Years [...] Upcoming Encounters Date Type Department Care Team ([facility] Contact Info) Description 10/23/2024 2:30 PM EDT Office Visit [facility] P[facility] [address] [place] [address] Eduardo Kimbrough MD [address] [place] [address] documented as of this encounter Visit Diagnoses Not on filedocumented in this encounter Additional Health Concerns Assessment Noted Time PHQ-9 Depression Total Score: 0 09/20/19 24 11:20 AM EDT documented as of this encounter Care Teams Sourcing Intern Relationship Specialty Start Date End Date Eduardo Kimbrough MD [address] [place] [address] PCP - General Internal Medicine 04/13/13 documented as of this encounter
--- OUTSIDE RECORDS SUMMARY | 2024-07-25 09:42 | XMS_ITS | Encounter Summary ---
Author Organization [employer] Address [address] [place] [address] Care Team Providers Care Freight Forwarder Name Role Phone Eduardo Kimbrough MD Primary Care Provider [phone]- [phone] Reason for Visit * Reason Comments Med Refill Encounter Details Date Type Department Care Team (Late Contact Info) Description 12/01/2022 Refill [facility] [address] [place] [address] Ariel Chavez FNP Major depressive disorder, recurrent, [...] Department Care Team (Late Contact Info) Description 10/23/2024 2:30 PM EDT Office Visit [facility] [address] [place], [place] [phone] Eduardo Kimbrough MD [address] [place] [address] documented as of this encounter Visit Diagnoses Diagnosis Major depressive disorder, recurrent, in partial remission (CMS/HCC) documented in this encounter Additional Health Concerns Assessment Noted Time PHQ-9 Depression Total Score: 0 10/21/19 23 10:30 AM EDT documented as of this encounter Care Teams Freight Forwarder Relationship Specialty Start Date End Date Eduardo Kimbrough MD [address] [place] [address] PCP - General Internal Medicine 04/13/13 documented as of this encounter
--- OUTSIDE RECORDS SUMMARY | 2024-07-25 09:42 | XMS_ITS | Clinical Summary ---
Author Organization [employer] Address [address] [place] [address] 7 [place] [address] Care Team Providers Care Space Planner Name Role Phone Eduardo Kimbrough MD Primary Care Provider +1- [phone] Allergies Active Allergy Reactions Criticality Noted Date [...] tablet 11 023 Active ibuprofen 800 MG tabletIndications :Chronic pain syndrome take 1 tablet (800MG) by oral route 2 times every day with food Strength: 800 mg 40 tablet 1 023 Active Flovent HFA 220 MCG/ACT inhaler INHALE ONE PUFFS BY MOUTH TWICE DAILY 12 g 5 023 Active cholecalciferol (Vitamin D-3) 100 MCG (4000 UT) capsuleIndication s:Vitamin D deficiency Take 1 capsule (100 mcg) [...] 11 024 Active predniSONE (Deltasone) 20 MG tabletIndications :Other cough,Moderate persistent asthma with acute exacerbation 2 tabs once a day x 5 days 10 tablet 024 Active guaiFENesin-codei ne (Robitussin-AC) 100-10 MG/5ML syrupIndications: Moderate persistent asthma with acute exacerbation Take 10 mL by mouth every 4 (four) hours. 100 mL 024 Active senna (Senokot) 8.6 MG tablet Take 2 tablets by mouth at bedtime. 025 Active levothyroxine (Synthroid) 75 MCG tabletIndications :Other specified hypothyroidism Take 1 tablet (75 mcg) by mouth before breakfast. 30 tablet 3 025 2025 Active ALPRAZolam (Xanax) 1 MG tablet TAKE ONE OR TWO TABLETS AT BEDTIME NEEDED FOR ANXIETY 60 tablet 025 Active ALPRAZolam (Xanax) 1 MG tablet TAKE 1 TO 2 TABLETS EVERY NIGHT AT BEDTIME NEEDED FOR ANXIETY 60 tablet 025 2024 Discontinued Active Problems Problem Noted Date Diagnosed Date [...] further medication management. [facility] All [facility] questions were answered and [...] when [facility] her [facility] to go to [place] following ex partner and their son. She [...] (major depressive disorder), recurrent, in partial remission ([facility]) Assessment & Plan (08/04/2022 2:20 PM EDT): [...] r/t limited insurance. Will request contact by [facility] clinician. No med changes at [...] organization. Date Type Department Care Team Description 07/13/2024 1:00 PM EDT Office Visit [facility] [address] [place] [address] Eduardo Kimbrough MD MDD (major depressive disorder), recurrent, in partial remission (CMS/HCC) (Primary Dx) 07/13/2024 Travel 07/13/2024 Refill [facility] [address] [place] [address] Eduardo Kimbrough MD 06/16/2024 Telephone [facility] [address] [place] [address] Eduardo Kimbrough MD Results 06/15/2024 Orders Only [facility] [address] [place] [address] Eduardo Kimbrough MD Other specified hypothyroidism (Primary Dx) 06/14/2024 2:40 PM EDT Office Visit [facility] [address] [place] [address] Eduardo Sousa MD Other chest pain (Primary Dx); MDD (major depressive disorder), recurrent, in partial remission (CMS/HCC); Other specified hypothyroidism 06/14/2024 Orders Only [facility] [address] [place] [address] Eduardo Sousa MD 06/14/2024 Travel 06/14/2024 Telephone [facility] [address] [place] [address] Eduardo Kimbrough MD Chest Pain 06/14/2024 Telephone [facility] [address] [place] [address] Eduardo Kimbrough MD Walk-In 06/14/2024 Refill [facility] [address] [place] [address] Eduardo Kimbrough MD 05/17/2024 Refill [facility] [address] [place] [address] Lexy Fajardo RN 05/17/2024 Telephone [facility] [address] [place] [address] Eduardo Kimbrough MD from Last 3 Months [...] Sign Reading Time Taken Comments Blood Pressure 153/67 07/13/2024 1:16 PM EDT Pulse 72 07/13/2024 1:16 PM EDT Temperature 36.6 ??C (97.9 ??F) 07/13/2024 1:16 PM ED T Respiratory Rate 19 07/13/2024 1:16 PM EDT Oxygen Saturation 95% 07/13/2024 1:16 PM EDT Inhaled Oxygen Concentration - - Weight 73.5 kg (162 lb) 07/13/2024 1:16 PM EDT Height 160 cm (5' 3 ) 07/13/2024 1:16 PM EDT Body Mass Index 28.7 07/13/2024 1:16 PM EDT Plan of Treatment Upcoming Encounters Date Type Department Care Team ([facility] st Contact Info) Description 10/23/2024 2:30 PM EDT Office Visit [facility] [address] [place] [address] Eduardo Kimbrough MD [address] [place] [address] Health Maintenance Due Date Last Done Comments SDOH Screening 1945 Alcohol/Substance Use Screening 1959 Hepatitis C Screening 06/25/1965 DTaP/Tdap/Td Vaccines (1 - Tdap) 06/25/1966 Zoster Vaccines (1 of 2) 06/25/1997 Pneumococcal Vaccine: 50+ Years (2 of 2 - PCV) 12/01/2014 12/01/2013 RSV Patients and Patients Aged 60 years or older (1 - 1-dose 75+ series) 06/25/2022 COVID-19 Vaccine (2023-2 5 season) 2023 04/04/2021, 06/13/2020, 05/16/2020 Influenza Vaccine (#1) 2023 6, 01/04/2015, 12/01/2013 Depression Screening 06/14/2025 06/14/2024, 06/14/2024 Tobacco Screening 07/13/2025 07/13/2024 HIB Vaccines Aged Out No longer eligi [...] 06/14/2024 3:31 PM EDT Other chest pain T4, FREE Routine 06/14/2024 2:34 PM EDT CBC WITH AUTO DIFFERENTIAL Routine 06/14/2024 2:34 PM EDT Other fatigue VITAMIN D,25-OH,TOTAL,IA Routine 06/14/2024 2:34 PM EDT Other specified hypothyroidism MDD (major depressive disorder), recurrent, in partial remission (CMS/HCC) VITAMIN B12/FOLATE, SERUM PANEL Routine 06/14/2024 2:34 PM EDT Other specified hypothyroidism TSH W/REFLEX TO FT4 Routine 06/14/2024 2 :34 PM EDT Other specified hypothyroidism MAGNESIUM Routine 06/14/2024 2:34 PM EDT Other specified hypothyroidism MDD (major depressive disorder), recurrent, in partial remission (CMS/HCC) COMPREHENSIVE METABOLIC PANEL Routine 06/14/2024 2:34 PM EDT Other specified hypothyroidism Impaired fasting glucose MDD (major depressive disorder), recurrent, in partial remission (CMS/HCC) from Last 3 Months Results * ECG 12 lead (06/14/2024 3:31 PM EDT) Eduardo Padilla MD - 06/14/2024 3:31 PM EDT Heart rate 67 bpm. ??Madison 41 degrees. ??Normal sinus rhythm. ??No sign of left atrial enlargement or right atrial enlargement. ??No hypertrophy. ??No ST elevation or ST depression. ??Normal EKG. us Eduardo Kimbrough MD ECG ORDERABLES Final Resul t * (ABNORMAL) Vitamin D, 25-Hydroxy, Total, Immunoassay (06/14/2024 2:34 PM EDT) Vitamin D 25-OH Total 29.1(L) >30 ng/mL [facility] Comment: Health Based Reference Values*< 20 ??ng/mL ??Ndpyxeqtu86-09 ng/mL ??Insufficient> 30 ??ng/mL ??Sufficient*Neva RAMOS. N Engl J Med. 2007;357:266-280There is no well-established upper level of normal vitamin Dlevels. Some laboratories use 50 ng/mL as an upper limit ofnormal. However, toxicity is patient-dependent and may occurat any level. Careful correlation with the patient'spresentation is necessary and, if there is concern forvitamin D toxicity, treatment should be consideredirrespective of the serum level.Care must be taken in interpreting Vitamin D results fromdifferent laboratories and methodologies. ??Published datademonstrated that results from patients undergoinghemodialysis may show a negative bias when tested withvarious automated 25-OH vitamin D assays when compared toLC- MS/MS.When testing samples from patients whose predominant form ofVitamin D is Vitamin D2, such as patients receiving VitaminD2 supplementation, results that are subtherapeutic shouldbe confirmed with another method such as LC-MS/MS. Blood Venous blood specimen / Unknown 06/14/2024 2:34 PM EDT 06/14/2024 5:57 PM EDT Eduardo Kimbrough MD LAB BLOOD ORDERABLES Final Result [facility] [address] [place] [address] [phone] * Vitamin B12/Folate, Serum Panel (06/14/2024 2:34 PM EDT) Vitamin B12 608 200 - 900 pg/mL [facility] Comment:NORMAL 200-900 PG/ML INDETERMINATE 160-199 PG/ML DEFICIENT < 160 PG/ML Folate 12.1 > or = 4.0 ng/mL [facility] Comment:Reference Values:> o r = 4.0 ng/mL< 4.0 ng/mL suggests folate deficiency Methotrexate, aminopterin and folinic acid(leucovorin) are chemotherapeutic agents whose molecularstructures are similar to folate; therefore, the Architectfolate assay cannot be used for patients using these drugs. Blood Venous blood specimen / Unknown 06/14/2024 2:34 PM EDT 06/14/2024 5:57 PM EDT us Eduardo Kimbrough MD LAB BLOOD ORDERABLES Final Result Performing Organization Address [facility] Co de Phone Number [facility] [address] [place] [phone] * (ABNORMAL) TSH W/Reflex to FT4 (06/14/2024 2:34 PM EDT) Pathologist [facility] TSH reflex Free T4 0.30(L) 0.32 - 4.0 uIU/mL [facility] Blood Venous blood specimen / Unknown 06/14/2024 2:34 PM EDT 06/14/2024 5:57 PM EDT us Eduardo Kimbrough MD LAB BLOOD ORDERABLES Final Result Performing Organization Address [facility] Co de Phone Number [facility] [address] [place] [phone] * (ABNORMAL) CBC auto differential (06/14/2024 2:34 PM EDT) White Blood Count 6.3 4.8 - 10.8 X10*3/uL [facility] Red Blood Count 4.43 4.20 - 5.50 X10*6/uL [facility] Hemoglobin 13.3 12.0 - 16.0 g/dl [facility] Hematocrit 40.2 37.0 - 47.0 % [facility] Mean Corpuscular Volume 90.7 80.0 - 98.0 fL [facility] Mean Corpuscular Hemoglobin 30.0 27.0 - 33.0 pg [facility] Mean Corpuscular HGB Conc 33.1 31.0 - 35.0 g/dl [facility] Red Cell Distribution Width 12.6 11.0 - 16.0 % [facility] Platelet Count 236 160 - 400 X10*3/uL [facility] Mean Platelet Volume 9.1(L) 9.4 - 12.3 fL [facility] Neutrophils Percent Auto 51.4 45 - 73 % [facility] Imm Gran Pct Auto 0.3 0.0 - 0.4 % [facility] Lymphocytes Percent Auto 34.0 20 - 40 % [facility] Monocytes Percent Auto 8.1 2 - 11 % [facility] Eosinophils Percent Auto 5.7(H) 0 - 4 % [facility] Basophils Percent Auto 0.5 0 - 2 % [facility] NRBC Pct Auto 0.0 0.0 - 0.2 /100WBC [facility] Neutrophils Absolute Auto 3.2 2.0 - 8.3 x10*3/uL [facility] Imm Gran Abs Auto 0.02 0.00 - 0.03 X10*3/uL [facility] Lymphocytes Absolute Auto 2.1 1.2 - 4.9 X10*3/uL [facility] Monocytes Absolute Auto 0.5 0.1 - 1.2 X10*3/uL [facility] Eosinophils Absolute Auto 0.4 0.0 - 0.4 X10*3/uL [facility] Basophils Absolute Auto 0.0 0.0 - 0.2 X10*3/uL [facility] NRBC Abs Auto 0.000 0.0 - 0.012 X10*3/uL [facility] Blood Venous blood specimen / Unknown 06/14/2024 2:34 PM EDT 06/14/2024 5:57 PM EDT us Eduardo Kimbrough MD LAB BLOOD ORDERABLES Final Result [facility] [address] [place] [phone] [phone] * T4, Free (06/14/2024 2:34 PM EDT) [facility] Free T4 (Free Thyroxine) 1.38 0.71 - 1.85 ng/dL [facility] 06/14/2024 2:34 PM EDT 06/14/2024 5:57 PM EDT Eduardo Kimbrough MD LAB BLOOD ORDERABLES Final Result Performing Organization Address [facility]/ZIP Co de Phone Number [facility] [address] [place] [phone] * Magnesium (06/14/2024 2:34 PM EDT) [facility] Magnesium 2.0 1.6 - 2.6 mg/dL [facility] Blood Venous blood specimen / Unknown 06/14/2024 2:34 PM EDT 06/14/2024 5:57 PM EDT Eduardo Kimbrough MD LAB BLOOD ORDERABLES Final Result Performing Organization Address [facility] Co de Phone Number [facility] [address] [place] [phone] * (ABNORMAL) Comprehensive Metabolic Panel (06/14/2024 2:34 PM EDT) [facility] Sodium 141 135 - 145 mmol/L [facility] Potassium 4.0 3.3 - 5.1 mmol/L [facility] Chloride 108 96 - 108 mmol/L [facility] Carbon Dioxide 27 22 - 29 mmol/L [facility] Anion Gap 10(L) 12 - 20 [facility] Urea Nitrogen (BUN) 15 9 - 16 mg/dL [facility] Creatinine, Serum 0.66 0.5 - 1.4 mg/dL [facility] Estimated Glomerular Filt Rate >60 [facility] Comment:Chronic Kidney Disea se: Estimated GFR < 60 mL/min/[id number] Kidney Disease: Estimated GFR < 15 mL/min/1.73m2 Glucose 96 60 - 115 mg/dL [facility] Calcium 9.3 8.4 - 10.2 mg/dL [facility] Bilirubin, Total 0.4 0.0 - 1.0 mg/dL [facility] Aspartate Amino Transferase 18 5 - 31 U/L [facility] Alanine Aminotransferase 13 0 - 31 U/L [facility] Total Protein 7.0 6.5 - 8.0 g/dL [facility] Albumin Level 4.3 3.5 - 5.0 g/dL [facility] Alkaline Phosphatase 89 39 - 117 U/L [facility] Blood Venous blood specimen / Unknown 06/14/2024 2:34 PM EDT 06/14/2024 5:57 PM EDT Eduardo Kimbrough MD LAB BLOOD ORDERABLES Final Result [facility] [address] [place] [address] [phone] from Last [place] [id number] [employer] MED[employer]ARE REPLACEMENT HSN FULL Care Teams Space Planner Relationship Specialty Start Date End Date Eduardo Kimbrough MD [address] [place] [phone] PCP - General Internal Medicine 04/13/13
--- OUTSIDE RECORDS SUMMARY | 2024-07-25 09:42 | XMS_ITS | Encounter Summary ---
Author Organization [employer] Address [address] [place] [address] Care Team Providers Care Door Cutter Name Role Phone Eduardo Kimbrough MD Primary Care Provider +1- [phone] Encounter Details Date Type Department Care Team ([facility] Contact Info) Description 06/15/2024 Orders Only [facility] [address] [place] [address] Eduardo Kimbrough MD [address] [place] [address] Other specified hypothyroidism (Primary Dx) Social History Tobacco Use Types Packs/Day Years [...] Upcoming Encounters Date Type Department Care Team ([facility] Contact Info) Description 10/23/2024 2:30 PM EDT Office Visit [facility] [address] [place] [address] Eduardo Kimbrough MD [address] [place] [address] Scheduled Orders Name Type Priority Associated Diagnoses Orde r Schedule TSH W/Reflex to FT4 Lab Routine Other specified hypothyroidism Expected: 06/15/2024 (Approximate), Expires: 06/15/2025 documented as of this encounter Visit Diagnoses Diagnosis Other specified hypothyroidism- Primary documented in this encounter Additional Health Concerns Assessment Noted Time PHQ-9 Depression Total Score: 18 025 4:12 PM EDT documented as of this encounter Care Teams Door Cutter Relationship Specialty Start Date End Date Eduardo Kimbrough MD [address] [place] [address] PCP - General Internal Medicine 04/13/13 documented as of this encounter
[2024-07-25 14:14] LABS: MANUAL DIFF FLAG NO
[2024-07-25 14:19] LABS: Basophils Percent Auto 0.6 % (0-2); Eosinophils Absolute Auto 0.3 X10*3/uL (0.0-0.4); Eosinophils Percent Auto 5.3 % (0-4); Hematocrit 41.2 % (37.0-47.0); Hemoglobin 13.5 g/dl (12.0-16.0); Imm Gran Abs Auto 0.01 X10*3/uL (0.00-0.03); Imm Gran Pct Auto 0.2 % (0.0-0.4); Lymphocytes Absolute Auto 2.5 X10*3/uL (1.2-4.9); Lymphocytes Percent Auto 38.7 % (20-40); Mean Corpuscular HGB Conc 32.8 g/dl (31.0-35.0); Mean Corpuscular Hemoglobin 29.9 pg (27.0-33.0); Mean Corpuscular Volume 91.2 fL (80.0-98.0); Mean Platelet Volume 9.3 fL (9.4-12.3); Monocytes Absolute Auto 0.5 X10*3/uL (0.1-1.2); Monocytes Percent Auto 7.5 % (2-11); Neutrophils Absolute Auto 3.1 x10*3/uL (2.0-8.3); Neutrophils Percent Auto 47.7 % (45-73); Platelet Count 206 X10*3/uL (160-400); Red Blood Count 4.52 X10*6/uL (4.20-5.50); Red Cell Distribution Width 11.9 % (11.0-16.0); White Blood Count 6.4 X10*3/uL (4.8-10.8)
[2024-07-25 14:51] LABS: Anion Gap 13 (12-20); Blood Urea Nitrogen 19 mg/dL (9-16); Calcium 9.3 mg/dL (8.4-10.2); Carbon Dioxide 27 mmol/L (22-29); Chloride 105 mmol/L (96-108); Estimated Glomerular Filt Rate > 60; Glucose Random 106 mg/dL (60-115); Potassium 4.1 mmol/L (3.3-5.1); Sodium 141 mmol/L (135-145)
[2024-07-25 14:56] LABS: TSH reflex Free T4 0.93 uIU/mL (0.32-4.0)
== END 2024-07-25 09:15 | disposition home or self-care (01) ==
LOC: HO.CHCLDS 09:14
PROVIDERS: Visit Provider Internal Medicine
DX: R07.89 Other chest pain (principal); E03.8 Other specified hypothyroidism
CPT/HCPCS: 36415; 80048; 84443; 85025

== ENCOUNTER 2024-10-05 13:26 | Outpatient (AMB) | payer MEDICARE, MEDICAID, SELFPAY ==
--- OUTSIDE RECORDS SUMMARY | 2024-10-05 13:33 | XMS_ITS | Encounter Summary ---
Author Organization [employer] Address [address] [place] [address] Care Team Providers Care Land Title Examiner Name Role Phone Eduardo Kimbrough MD Primary Care Provider [phone]- [phone] Encounter Details Date Type Department Care Team ([facility] Contact Info) Description 06/15/2024 Orders Only [facility] [address] [place] [address] Eduardo Kimbrough MD [address] [place] [address] Other specified hypothyroidism (Primary Dx) Social History [...] Upcoming Encounters Date Type Department Care Team ([facility] Contact Info) Description 10/23/2024 2:30 PM EDT Office Visit [facility] [address] [place] [address] Eduardo Kimbrough MD [address] [place] [address] documented as of this encounter Procedures Procedure Name Priority Date/Time Associated Diagnosis Comments TSH W/REFLEX TO FT4 Routine 07/25/2024 9:17 AM EDT Other specified hypothyroidism documented in this encounter Results * TSH W/Reflex to FT4 (07/25/2024 9:17 AM EDT) TSH reflex Free T4 0.93 0.32 - 4.0 uIU/mL [facility] Blood Venous blood specimen / Unknown 07/25/2024 9:17 AM EDT 07/25/2024 2:07 PM EDT Eduardo Kimbrough MD LAB BLOOD ORDERABLES Final Result Performing Organization Address City/State/[facility] Co de Phone Number [facility] [address] [place] [address] [phone] documented in this encounter Visit Diagnoses Diagnosis Other specified hypothyroidism- Primary documented in this encounter Additional Health Concerns Assessment Noted Time PHQ-9 Depression Total Score: 18 06/14/ 025 4:12 PM EDT documented as of this encounter Care Teams Land Title Examiner Relationship Specialty Start Date End Date Eduardo Kimbrough MD [address] [place] [address] PCP - General Internal Medicine 04/13/13 documented as of this encounter
--- NOTE | 2024-10-05 14:10 | A.OFFVIS_ITS ---
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 She has had chest pains off and on for the last few months. No clear exertional patterns and it can happen any time. No previously documented coronary disease or myocardial infarction or cardiomyopathy. [facility] Medical History Chest pain Recent bereavement Tubular adenoma of colon HLD (hyperlipidemia) Hyperthyroidism Anxiety Asthma Surgical History History of nasal surgery History of cholecystectomy History of esophagogastroduodenoscopy (EGD) H/O colonoscopy Social History Patient Tobacco Use Status: Never used Tobacco Review of Systems Const Denies weakness ENT Denies dizziness Card Reports chest pain, Denies chest pain with activity, Denies syncope, Denies rapid heart rate, Denies pedal edema, Denies edema, Denies leg edema, Denies lightheadedness, Reports palpitations, Denies dyspnea, Denies dyspnea on e xertion and Denies orthopnea Resp Denies cough, Denies dyspnea and Denies dyspnea on exertion GI Denies hematochezia and Denies change in stool character Musc Denies abnormal gait, Denies muscle cramps, Denies muscle weakness, Denies numbness, Denies radiating pain into limb and Denies tingling Neuro Denies abnormal gait, Denies dizziness, Denies syncope, Denies numbness, Denies tingling and Denies weakness Endo Reports palpitations Physical Exam Vital Signs: Last Vital Signs Pulse 75 10/05/24 14:11 BP 120/60 10/05/24 14:11 BMI result Body Mass Index 28.1 Const General: comfortable and no acute distress Orientation/consciousness: patient oriented x3 HEENT Other: Unremarkable Head: Yes normal to inspection Neck Neck: Yes normal visual inspection Chest Chest palpation & inspection: normal inspection of the chest Resp Auscultation: clear to auscultation bilaterally Cardio Palpation: normal PMI Heart sounds: S1 normal heart sound present, S2 normal heart sound present, no gallops, no murmurs and no rubs GI Palpation (GI): Soft to palpation Back/Spine/Pelvis Other: unremarkable Skin General skin exam: no rashes or lesions noted Neuro General: patient oriented x3 Extrem General: Yes normal to inspection Psych Mental Status: mental status grossly normal Office Procedures EKG Details: EKG with sinus, 75/min, non-specific ST-T changes, normal GA/[place]. [id number], Complete Assessment & Plan Assessment & Plan (1) Precordial chest pain: Code(s): R07.2 - Precordial pain Category: Medical Plan Baseline EKG shows nonspecific ST-T changes. Symptoms were somewhat atypical but considering her age, we will proceed forward other with cardiac workup. Echocardiogram and exercise stress perfusion imaging study ordered. If unable to exercise, then do Lexiscan. Follow-up after the above. Orders: Orders CA stress test Today R07.2 - Precordial pain NM cardiolite stress test Today R07.2 - Precordial pain CA echo transthoracic complete Today R07.2 - Precordial pain Coding Level of Care Code New Pt Level 4 (96403) Complex EM visit Add On G2211 Diagnoses Precordial chest pain R07.2 CPT Codes EKG - CPT: 36834-[id number], Complete ([id number])
[2024-10-05 14:11] VITALS: BP 120/60; PULSE 75; BMI 28.1
== END 2024-10-05 14:34 | disposition home or self-care (01) ==
PROVIDERS: PCP Internal Medicine; Visit Provider Internal Medicine
DX: R07.2 Precordial pain (principal)
CPT/HCPCS: 93010; 99204; G2211

== ENCOUNTER → 2024-10-05 13:26 | Outpatient (BNVA) | payer MEDICARE, SELFPAY | PROVIDERS: PCP Internal Medicine; Visit Provider Internal Medicine | DX: R07.2 Precordial pain (principal) | CPT/HCPCS: 93005; 99202 ==

== ENCOUNTER → 2024-11-03 14:20 | Outpatient (REF) | payer MEDICARE, MEDICAID, SELFPAY ==
--- NOTE | 2024-11-03 14:24 | CA_ITS ---
Transthoracic Echocardiogram Patient (Last, First, Middle): Katie Mcintyre D Gender: F Date of : 1945 Age: 79 Procedure Date: 11/03/2024 Procedure Type: Transthoracic Echocardiogram Location: OP Height: 162.56 cm Weight: 74.84 kg BSA: 1.80 m2 Heart Rate: 59 bpm BP: 140 / 70 mmHg Vice President Media Relations: SALVADOR Castrejon MD: Pio Hunter MD Department Sales Manager: Avni Rico MD Symptoms: R07.2 - Precordial pain Study Quality: Adequate ECG Rhythm: Sinus Conclusions: - 1. Normal LV ejection fraction 55-60% with impaired relaxation filling pattern 2. Cardiac valvular Dopplers within normal limits 3. Normal RV systolic pressure 4. No gross pericardial effusion Findings Left Ventricle Normal left ventricular size, thickness, and systolic function. The visually estimated ejection fraction is between 55-60%. Spectral Doppler is indicative of an impaired relaxation filling pattern. E/E prime ratio is between 8 and 15 consistent with indeterminate filling pressures. Right Ventricle Normal right ventricular cavity size and systolic function. Atria Both atria are normal in size. There is no evidence of interatrial shunt. Aortic Valve There is mild calcification of the aortic valve. There is mild thickening of the aortic valve. There is no aortic valve stenosis. There is no aortic valve regurgitation. Mitral Valve There is mild anterior and posterior mitral leaflet thickening. There is trace mitral valve regurgitation. There is no mitral valve stenosis. Pulmonic Valve The pulmonic valve is likely normal. There is trace pulmonic valve regurgitation. Tricuspid Valve Normal tricuspid valve structure. There is mild tricuspid valve regurgitation. The right ventricular systolic pressure is normal. The right ventricular systolic pressure is 26 mmHg. Normal right atrial pressure. There is no evidence of pulmonary hypertension. Great Vessels All visible segments of the aorta are normal in size. The visualized portions of the pulmonary artery and branches are normal. Venous The inferior vena cava is normal in size and collapses greater than 50% with inspiration. Pericardium/Pleural There is no evidence of pericardial effusion. Prior Study Comparison No prior study available for comparison. Measurements 2D Linear Measurements IVSd: 0.76 0.6-0.9/0.6-1.0 cm LVIDd: 4.24 3.9-5.3/4.2-5.9 cm LVIDd Index: 2.36 2.4-3.2/2.2-3.1 cm/m2 LVIDs: 2.68 2.0-3.6 cm LVPWd: 0.76 0.7-1.1 cm LA Diam: 2.60 2.7-3.8/3.0-4.0 cm LAIDs Index: 1.44 1.5-2.3 cm/m2 LV Mass: 119.47 67-162/88-224 g LV Mass Index: 66.37 43-95/49-115 g/m2 LVOT Diam: 2.00 3.0+(-)1.3 cm 2D Systolic Function EF 4C: 55.40 >55% EF 2C: 54.20 >55% EF BiP: 56.10 >55% Mitral Valve MV Pk E: 0.67 MV PK A: 0.81 MV Decel Time: 216.00 E/A: 0.80 E'Lateral: 8.38 E'Medial: 5.44 E/E' Med: 12.40 E/E' Lat: 8.00 PHT: 63.00 MVA PHT: 3.49 Decel [place]: 3.11 Aortic Valve AoV Pk Dwayne: 1.21 AoV Mn Dwayne: 0.86 AoV VTI: 0.30 AoV Pk Grad: 6.00 Aov Mn Grad: 3.00 [place] Cont.VTI: 1.90 LVOT LVOT Pk Dwayne: 0.76 LVOT Mn Dwayne: 0.53 LVOT VTI: 0.18 LVOT Pk Grad: 2.00 LVOT Mn Grad: 1.00 LVOT Diam: 2.00 LVOT Area: 3.14 Diastolic Function MV Pk E: 0.67 MV Pk A: 0.81 E/A: 0.80 E'Medial: 5.44 E/E' Med: 12.40 E' Laterial: 8.38 E/E' Lat: 8.00 Right Ventricle TAPSE (mm): 18.30 TVS' Dwayne: 7.46 Tricuspid Valve TR Pk Dwayne: 2.38 TR Pk Grad: 23.00 RA Press: 3.00 RVSP: 26.00 Great Vessels Aorta Sinus of Valsalva: 3.20 2.0-3.5 cm Ao Asc: 3.30 2.1-3.4 cm Ao Arch: 2.70 Pulmonary Veins Pulm Vein S/D 1.50 Pulmonary Valve PV Pk Dwayne: 0.65 Peak PV Grad: 2.00 Updated in Other Vendor System with Status of Final Avni Rico MD electronically signed on 11/04/2024 11:18:46 AM with status of Final
--- OUTSIDE RECORDS SUMMARY | 2024-11-03 14:24 | XMS_ITS | Encounter Summary ---
Author Organization [employer] Address [address] [place] [address] Care Team Providers Care Fashion Patternmaker Name Role Phone Eduardo Kimbrough MD Primary Care Provider [phone]- [phone] Encounter Details Date Type Department [facility] Description 06/15/2024 Orders Only [facility] [address] [place] [address] Eduardo Kimbrough MD [address] [place] [address] Other specified hypothyroidism (Primary Dx) Social History [...] Upcoming Encounters Date Type Department Care Team [facility] Description 12/18/2024 11:30 AM EDT Office Visit [facility] [address] [place] [address] Eduardo Kimbrough MD [address] [place] [address] documented as of this encounter Procedures Procedure Name Priority Date/Time Associated Diagnosis Comments TSH W/REFLEX TO FT4 Routine 07/25/2024 9:17 AM EDT Other specified hypothyroidism documented in this encounter Results * TSH W/Reflex to FT4 (07/25/2024 9:17 AM EDT) TSH reflex Free T4 0.93 0.32 - 4.0 uIU/mL [facility] Blood Venous blood specimen / Unknown 07/25/2024 9:17 AM EDT 07/25/2024 2:07 PM EDT Eduardo Kimbrough MD LAB BLOOD ORDERABLES Final Result Performing Organization Address City/State/[facility] Co de Phone Number [facility] [address] [place] [address] [phone] documented in this encounter Visit Diagnoses Diagnosis Other specified hypothyroidism- Primary documented in this encounter Additional Health Concerns Assessment Noted Time PHQ-9 Depression Total Score: 18 06/14/ 025 4:12 PM EDT documented as of this encounter Care Teams Fashion Patternmaker Relationship Specialty Start Date End Date Eduardo Kimbrough MD [address] [place] [address] PCP - General Internal Medicine 04/13/13 documented as of this encounter
== END ==
LOC: HO.CARD 14:20
PROVIDERS: PCP Internal Medicine; Visit Provider Internal Medicine
DX: R07.2 Precordial pain (principal)
CPT/HCPCS: 93306

== ENCOUNTER → 2024-11-03 14:24 | Outpatient (BNV) | payer MEDICARE, MEDICAID, SELFPAY | PROVIDERS: PCP Internal Medicine; Visit Provider Internal Medicine Cardiovascular Disease | DX: I34.0 Nonrheumatic mitral (valve) insufficiency (principal); I36.1 Nonrheumatic tricuspid (valve) insufficiency | CPT/HCPCS: 93306 ==

== ENCOUNTER → 2024-12-15 07:42 | Outpatient (REF) | payer MEDICARE, MEDICAID, SELFPAY ==
--- NOTE | ~2024-12-15 | NM_ITS ---
EXERCISE MYOCARDIAL PERFUSION STUDY INDICATION: Precordial chest pain to evaluate for myocardial ischemia TECHNIQUE: The patient was brought in for an exercise perfusion study on 12/15/2024. Patient performed exercise as per [facility] protocol and was injected 25 mCi of sestamibi once target heart rate was achieved. Images were obtained using the SPECT gamma camera interlaced with the gating device. Images were obtained in supine position. Resting perfusion study was performed on 12/19/2024. Patient was administered 25 mCi of sestamibi intravenously at rest. Images were then obtained in supine position. Images obtained without without CT attenuation. Total DLP 78 mGy-cm. Images were processed with the software and compared side to side in short axis, horizontal long axis and vertical long axis views. FINDINGS: Raw images were reviewed The stress perfusion study showed nonattenuated show severely reduced or absent uptake in the distal lateral as well as inferoapical wall of the LV myocardium. There is also mildly reduced uptake in the lateral and inferolateral wall of the LV myocardium. Attenuated corrected images show mildly reduced uptake in the apex of the LV myocardium.. The gated study shows normal LV systolic function with calculated LVEF of 69%. LV cavity is mildly dilated in size. The gated study shows normal systolic wall thickening and contraction of segments. Resting study shows no change in perfusion pattern compared to stress perfusion study. Gating at rest reveals normal systolic wall motion with ejection fraction at 65%. The findings are consistent with fixed defect of the distal lateral and inferoapical wall of the LV myocardium which could suggest myocardial infarction although normal wall motion could suggest severe ischemia. Clinical correlation suggested. NM/NM cardiolite stress test IMPRESSION: 1. Myocardial perfusion imaging study shows severe fixed distal lateral and inferoapical wall defect which could suggest severe ischemia in absence of wall motion abnormality. 2. Gated LVEF is 69%. 3. Transient ischemic dilatation not present but LV cavity is dilated. EKG revealed positive for ischemia. Electronically signed by: Avni Rico MD 12/20/2024 03:35 PM EDT
--- NOTE | 2024-12-15 07:45 | CA_ITS ---
Acquisition Time: 2024-12-15 08:14:54 Total Exercise Time: 00:05:00 Test Indications: CP Medications: ALPRAZOLAM BENZONATATE LEVOTHYROXINE SINGULAIR QUETIAPINE SIMVASTATIN Protocol: JEFFRY Max HR: 131 BPM 91% of Pred: 143 BPM Max BP: 124/62 mmHG Max Work Load: 4.7 METS Exercise stress test with exercise 5 min of Jeffry stage 1 with increase of Incline to 11% at 3 min, with moderate shortness of breath and need to stop, with isolated PACs during test and a ventricular cuplet in recovery, with EKG changes meeting criteria for ischemia: up to 1 mm downsloping to horizontal ST depression inferolateral leads. In recovery she used her Albuteral inhaler and breathing normalized. Nuclear images pending. Test reviewed with Dr Hunter. Referred By: Pio Hunter Electronically Signed By: KATLIN GASPAR
--- OUTSIDE RECORDS SUMMARY | 2024-12-15 07:45 | XMS_ITS | Encounter Summary ---
Author Organization [employer] Address [address] [place] [address] Care Team Providers Care Fern Cutter Name Role Phone Eduardo Kimbrough MD Primary Care Provider [phone]- [phone] Encounter Details Date Type Department Care Team ([facility] Contact Info) Description 06/15/2024 Orders Only [facility] MED & PEDS [address] [place] [address] Eduardo Kimbrough MD [address] [place] [address] Other specified hypothyroidism (Primary Dx) Social History [...] Upcoming Encounters Date Type Department Care Team ([facility] Contact Info) Description 12/18/2024 11:30 AM EDT Office Visit [facility] MED & PEDS [address] [place] [address] Eduardo Kimbrough MD [address] [place] [address] documented as of this encounter Procedures Procedure Name Priority Date/Time Associated Diagnosis Comments TSH W/REFLEX TO FT4 Routine 07/25/2024 9:17 AM EDT Other specified hypothyroidism documented in this encounter Results * TSH W/Reflex to FT4 (07/25/2024 9:17 AM EDT) TSH reflex Free T4 0.93 0.32 - 4.0 uIU/mL [facility] Blood Venous blood specimen / Unknown 07/25/2024 9:17 AM EDT 07/25/2024 2:07 PM EDT Eduardo Kimbrough MD LAB BLOOD ORDERABLES Final Result Performing Organization Address City/State/[facility] Co de Phone Number [facility] [address] [place] [address] [phone] documented in this encounter Visit Diagnoses Diagnosis Other specified hypothyroidism- Primary documented in this encounter Additional Health Concerns Assessment Noted Time PHQ-9 Depression Total Score: 18 06/14/ 025 4:12 PM EDT documented as of this encounter Care Teams Fern Cutter Relationship Specialty Start Date End Date Eduardo Kimbrough MD [address] [place] [address] PCP - General Internal Medicine 04/13/13 documented as of this encounter
--- OUTSIDE RECORDS SUMMARY | 2024-12-15 07:45 | XMS_ITS | Encounter Summary ---
Author Organization [employer] Address [address] [place] [address] Care Team Providers Care Furnace Repairer Helper Name Role Phone Eduardo Kimbrough MD Primary Care Provider [phone]- [phone] Reason for Visit * Reason Onset Date Comments PCP Contact 11/15/2024 Encounter Details Date Type Department Care Team ([facility] st Contact Info) Description 11/15/2024 Telephone [facility] MED & PEDS [address] [place] [address] Eduardo Kimbrough MD [address] [place] [address] PCP Contact Social History Tobacco Use Types Packs/Day Years [...] Telephone Encounter - Shantel Negro RN - 11/15/2024 4:01 PM EDT Pt walked into office stating she is concerned that she has not been contacted by GI specialist after positive FIT and referral generated 04/25/24. Pt reports that she is concerned due to having family history of GI cancers and history of large polyps in colon. Author advised will look into concern and contact pt once more information is found. Pt verbalized understanding and agreement with plan. documented in this encounter Plan of Treatment Upcoming Encounters Date Type Department Care Team (Late st Contact Info) Description 12/18/2024 11:30 AM EDT Office Visit [facility] MED & PEDS [address] [place] [address] Eduardo Kimbrough MD [address] [place] [address] documented as of this encounter Visit Diagnoses Not on filedocumented in this encounter Additional Health Concerns Assessment Noted Time PHQ-9 Depression Total Score: 18 025 4:12 PM EDT documented as of this encounter Care Teams Furnace Repairer Helper Relationship Specialty Start Date End Date Eduardo Kimbrough MD [address] [place] [address] PCP - General Internal Medicine 04/13/13 documented as of this encounter
--- OUTSIDE RECORDS SUMMARY | 2024-12-15 07:46 | XMS_ITS | Encounter Summary ---
Author Organization [employer] Address [address] [place] [address] Care Team Providers Care Mill Oiler Name Role Phone Eduardo Kimbrough MD Primary Care Provider [phone] Reason for Visit * Reason Comments Med Refill Encounter Details Date Type Department Care Team (Late Contact Info) Description 12/01/2022 Refill [facility] MEDICINE [address] [place] [address] Ariel Chavez FNP Major depressive disorder, recurrent, [...] Department Care Team (Late Contact Info) Description 12/18/2024 11:30 AM EDT Office Visit [facility] MED & PEDS [address] [place], [place] [phone] Eduardo Kimbrough MD [address] [place] [address] documented as of this encounter Visit Diagnoses Diagnosis Major depressive disorder, recurrent, in partial remission (CMS/HCC) documented in this encounter Additional Health Concerns Assessment Noted Time PHQ-9 Depression Total Score: 0 10/21/19 23 10:30 AM EDT documented as of this encounter Care Teams Mill Oiler Relationship Specialty Start Date End Date Eduardo Kimbrough MD [address] [place] [address] PCP - General Internal Medicine 04/13/13 documented as of this encounter
--- OUTSIDE RECORDS SUMMARY | 2024-12-15 07:46 | XMS_ITS | Encounter Summary ---
Author Organization [employer] Address [address] [place] [address] Care Team Providers Care Personal Banking Officer Name Role Phone Eduardo Kimbrough MD Primary Care Provider [phone]- [phone] Encounter Details Date Type Department Care Team ([facility] Contact Info) Description 06/11/2023 Orders Only [facility] MED & PEDS [address] [place] [address] Eduardo Kimbrough MD [address] [place] [address] Social History Tobacco Use Types Packs/Day Years [...] Type Department Care Team ([facility] Contact Info) Description 12/18/2024 11:30 AM EDT Office Visit [facility] MED & PEDS [address] [place], [place] [phone] Eduardo Kimbrough MD [address] [place] [address] documented as of this encounter Visit Diagnoses Not on filedocumented in this encounter Additional Health Concerns Assessment Noted Time PHQ-9 Depression Total Score: 0 05/24/19 24 11:02 AM EDT documented as of this encounter Care Teams Personal Banking Officer Relationship Specialty Start Date End Date Eduardo Kimbrough MD [address] [place] [address] PCP - General Internal Medicine 04/13/13 documented as of this encounter
--- OUTSIDE RECORDS SUMMARY | 2024-12-15 07:46 | XMS_ITS | Encounter Summary ---
Author Organization [employer] Address [address] [place] [address] Care Team Providers Care Adult Day Care Worker Name Role Phone Eduardo Kimbrough MD Primary Care Provider [phone]- [phone] Reason for Visit * Reason Comments Med Refill Encounter Details Date Type Department Care Team ([facility] Contact Info) Description 10/08/2023 Refill [facility] MED & PEDS [address] [place] [address] Eduardo Kimbrough MD [address] [place] [address] Social History Tobacco Use Types Packs/Day Years [...] Upcoming Encounters Date Type Department Care Team ([facility] Contact Info) Description 12/18/2024 11:30 AM EDT Office Visit [facility] MED & PEDS [address] [place] [address] Eduardo Kimbrough MD [address] [place] [address] documented as of this encounter Visit Diagnoses Not on filedocumented in this encounter Additional Health Concerns Assessment Noted Time PHQ-9 Depression Total Score: 0 09/20/19 24 11:20 AM EDT documented as of this encounter Care Teams Adult Day Care Worker Relationship Specialty Start Date End Date Eduardo Kimbrough MD [address] [place] [address] PCP - General Internal Medicine 04/13/13 documented as of this encounter
--- OUTSIDE RECORDS SUMMARY | 2024-12-15 07:46 | XMS_ITS | Clinical Summary ---
Author Organization [employer] Address [address] [place] [address] [address] [place] [address] Care Team Providers Care Bowling Ball Assembler Name Role Phone Eduardo Kimbrough MD Primary Care Provider [phone]- [phone] Allergies Active Allergy Reactions Criticality Noted Date [...] 30 MINUTES. 4 tablet 11 023 Active Flovent HFA 220 MCG/ACT inhaler INHALE ONE PUFFS BY MOUTH TWICE DAILY 12 g 5 023 Active cholecalciferol (Vitamin D-3) 100 MCG (4000 UT) capsuleIndication s:Vitamin D deficiency Take 1 capsule (100 mcg) by mouth in the morning. 90 capsule 3 024 Active predniSONE (Deltasone) 20 MG tabletIndications [...] by mouth at bedtime. 025 Active levothyroxine (Synthroid, Levoxyl) 75 MCG tabletIndications :Other specified hypothyroidism TAKE ONE TABLET DAILY BEFORE BREAKFAST 30 tablet 3 Active PARoxetine (Paxil) 10 MG tabletIndications :Moderately severe depression Take 1 tablet (10 mg) by mouth in the morning. 30 tablet 11 025 2025 Active ibuprofen 800 MG tabletIndications :Chronic pain syndrome take 1 tablet (800MG) by oral route 2 times every day with food Strength: 800 mg 40 tablet 1 025 Active montelukast (Singulair) 10 MG tablet TAKE ONE TABLET EVERY EVENING 30 tablet 11 Active ALPRAZolam (Xanax) 1 MG tablet TAKE TWO TABLETS EVERY NIGHT AT BEDTIME NEEDED FOR ANXIETY 60 tablet 025 Active QUEtiapine (SEROquel) 100 MG tablet Take 2 tablets (200 mg) by mouth at bedtime. 180 tablet 3 Active simvastatin (Zocor) 40 MG tablet Take 1 tablet (40 mg) by mouth at bedtime. TAKE ONE TABLET EVERY EVENING 90 tablet 3 025 Active QUEtiapine (SEROquel) 100 MG tablet Take 2 tablets (200 mg) by mouth at bedtime. 180 tablet 3 024 2024 Discontinued(R eorder (will not trigger notification to Pharmacy)) simvastatin (Zocor) 40 MG tablet TAKE ONE TABLET EVERY EVENING 60 tablet 11 024 2024 Discontinued(R eorder (will not trigger notification [...] further medication management. [facility] All her questions were answered [...] when one of her sons left the [facility] to go to [place] following ex partner and their son. She [...] (major depressive disorder), recurrent, in partial remission ([facility]) Assessment & Plan (08/04/2022 2:20 PM EDT): [...] r/t limited insurance. Will request contact by [facility] clinician. No med changes at this time, [...] months. She agrees with the plan. Encounters Date Type Department Care Team Description 11/22/2024 Refill [facility] MEDICINE [address] [place] [address] Eduardo Kimbrough MD 11/15/2024 Telephone [facility] MED & PEDS [address] [place] [address] Eduardo Kimbrough MD PCP Contact 11/14/2024 Refill [facility] MED & PEDS [address] [place] [address] Eduardo Kimbrough MD 11/11/2024 Refill [facility] MED & PEDS [address] [place] [address] Eduardo Kimbrough MD 10/23/2024 2:30 PM EDT Office Visit [facility] MED & PEDS [address] [place] [address] Eduardo Kimbrough MD Other specified hypothyroidism (Primary Dx); Chronic pain syndrome; Elevated BP without diagnosis of hypertension; Moderately severe depression 10/23/2024 Travel 10/09/2024 Refill [facility] MED & PEDS [address] [place] [address] Eduardo Kimbrough MD Other specified hypothyroidism 09/14/2024 Refill [facility] MED & PEDS [address] [place] [address] Eduardo Kimbrough MD from Last 3 Months Immunizations Immunization Administration Dates Next Due Influenza injectable quadriv [...] Sign Reading Time Taken Comments Blood Pressure 150/76 10/23/2024 2:35 PM EDT Pulse 78 10/23/2024 2:35 PM EDT Temperature 36.2 C (97.2 F) 10/23/2024 2:35 PM EDT Respiratory Rate 12 10/23/2024 2:35 PM EDT Oxygen Saturation 98% 10/23/2024 2:35 PM EDT Inhaled Oxygen Concentration - - Weight 76.2 kg (168 lb) 10/23/2024 2:35 PM EDT Height 160 cm (5' 3 ) 10/23/2024 2:35 PM EDT Body Mass Index 29.76 10/23/2024 2:35 PM EDT Plan of Treatment Upcoming Encounters Date Type Department Care Team ([facility] st Contact Info) Description 12/18/2024 11:30 AM EDT Office Visit [facility] MED & PEDS [address] [place] [address] Eduardo Kimbrough MD [address] [facility] [place] [address] Health Maintenance Due Date Last Done Comments SDOH Screening 1945 Alcohol/Substance Use Screening 1957 Hepatitis C Screening 06/25/1965 DTaP/Tdap/Td Vaccines (1 - Tdap) 06/25/1966 Zoster Vaccines (1 of 2) 06/25/1997 Pneumococcal Vaccine: 50+ Years (2 of 2 - PCV) 12/01/2014 12/01/2013 RSV Patients and Patients Aged 60 years or older (1 - 1-dose 75+ series) 06/25/2022 COVID-19 Vaccine ( - 2024-2 6 season) 2024 04/04/2021, 06/13/2020, 05/16/2020 Influenza Vaccine (#1) 2024 6, 01/04/2015, 12/01/2013 Depression Monitoring 12/14/2024 06/14/2024 , 06/14/2024 Tobacco Screening 10/23/2025 10/23/2024 HIB Vaccines Aged Out No longer eligi [...] patient's age to complete this topic Meningococcal B Vaccine Aged Out No l onger eligible based on patient's age to complete this topic Meningococcal Vaccine Aged Out No lacey divya eligible based on patient's age to complete this topic RSV under 20 months Aged Out No longe r eligible based on patient's age to complete this topic Rotavirus Vaccines Aged Out No longer eligible based on patient's age to complete this topic Insurance [place] [employer] [id number] [employer] MEDICARE REPLACEMENT HS FULL Care Teams Bowling Ball Assembler Relationship Specialty Start Date End Date Eduardo Kimbrough MD [address] [place] [address] [place] [address] PCP - General Internal Medicine 04/13/13
== END ==
LOC: HO.CARD 07:42
PROVIDERS: PCP Internal Medicine; Visit Provider Internal Medicine
DX: R07.2 Precordial pain (principal)
CPT/HCPCS: 78452; 93017; A9500; J0280; J2785

== ENCOUNTER → 2024-12-15 07:45 | Outpatient (BNV) | payer MEDICARE, MEDICAID, SELFPAY | PROVIDERS: PCP Internal Medicine; Visit Provider Nurse Practitioner Family | DX: R07.2 Precordial pain (principal) | CPT/HCPCS: 78452; 93016; 93018 ==

== ENCOUNTER 2024-12-21 13:54 | Outpatient (REF) | payer MEDICARE, MEDICAID, SELFPAY ==
[2024-12-21 17:25] LABS: Hematocrit 40.5 % (37.0-47.0); Hemoglobin 13.1 g/dl (12.0-16.0); Mean Corpuscular HGB Conc 32.3 g/dl (31.0-35.0); Mean Corpuscular Hemoglobin 29.4 pg (27.0-33.0); Mean Corpuscular Volume 90.8 fL (80.0-98.0); NRBC Abs Auto 0.000 X10*3/uL (0.0-0.012); NRBC Pct Auto 0.0 /100WBC (0.0-0.2); Platelet Count 218 X10*3/uL (160-400); Red Blood Count 4.46 X10*6/uL (4.20-5.50); White Blood Count 9.0 X10*3/uL (4.8-10.8)
[2024-12-21 17:36] LABS: INTERNATIONAL NORM RATIO 0.9 (0.9-1.1); Prothrombin Time 10.8 SEC (10.9-12.4)
[2024-12-21 18:45] LABS: Alanine Aminotransferase 24 U/L (0-31); Albumin Level 4.7 g/dL (3.5-5.0); Alkaline Phosphatase 118 U/L (39-117); Anion Gap 13 (12-20); Aspartate Amino Transferase 24 U/L (5-31); Blood Urea Nitrogen 22 mg/dL (9-16); Calcium 9.8 mg/dL (8.4-10.2); Carbon Dioxide 28 mmol/L (22-29); Chloride 107 mmol/L (96-108); Cholesterol 193 mg/dL (<200); Estimated Glomerular Filt Rate > 60; HDL Cholesterol 71 mg/dL (>40); Potassium 4.4 mmol/L (3.3-5.1); Sodium 144 mmol/L (135-145); Total Protein 7.3 g/dL (6.5-8.0); Triglycerides 109 mg/dL (<150)
== END 2024-12-21 13:55 | disposition home or self-care (01) ==
LOC: HO.LAB 13:54
PROVIDERS: PCP Internal Medicine; Visit Provider Internal Medicine
DX: R07.9 Chest pain, unspecified (principal); R94.39 Abnormal result of other cardiovascular function study; E03.8 Other specified hypothyroidism
CPT/HCPCS: 36415; 80053; 80061; 84443; 85027; 85610; 99212

== ENCOUNTER 2024-12-21 13:54 | Outpatient (AMB) | payer MEDICARE, MEDICAID, SELFPAY ==
--- NOTE | 2024-12-21 14:10 | A.OFFVIS_ITS ---
Vital Signs 12/21/24 14:13 Height 5 ft 3 in Weight 170 lb 3.15 oz BMI 30.1 BP 120/62 Blood Pressure Location Lt brachial Position Sitting Pulse 74 Pulse Source Pulse Oximeter Intake Visit Reasons: f/up stress test Hospital Pharmacy Technician Required: Yes Hospital Pharmacy Technician Language: Milling Operator Name: [email or web address] Accompanied by: Self / Same As Patient Allergies oxycodone (From PERCOCET) Allergy (Intermediate, Verified 08/24/24 12:28) Vomiting Medication List - Last Reconciled 12/21/24 by Pio Hunter MD alprazolam 1 mg PO DAILY benzonatate 100 mg PO TID PRN cholecalciferol (vitamin D3) 50 mcg PO DAILY fluticasone propionate 220 mcg/actuation 2 inhalations inhalation BID levothyroxine 75 mcg PO DAILY montelukast 10 mg PO DAILY quetiapine 100 mg PO BEDTIME simvastatin 40 mg PO BEDTIME HPI Comments Details: Katie returns for follow-up. Recently seen in consultation regarding chest pains. She has had off and on chest pains for a few months but today she states she is no longer having any pain. No previously documented coronary disease or myocardial infarction or cardiomyopathy. She underwent cardiac workup including echocardiogram and stress test. In the perfusion component of the stress test, reported have severe ischemia in the distal lateral/inferior apical areas. Seems quite anxious otherwise. [facility] Medical History Chest pain Recent bereavement Tubular adenoma of colon HLD (hyperlipidemia) Hyperthyroidism Anxiety Asthma Surgical History History of nasal surgery History of cholecystectomy History of esophagogastroduodenoscopy (EGD) H/O colonoscopy Social History Patient Tobacco Use Status: Never used Tobacco Review of Systems Const Denies chills, Denies fatigue, Denies fever(s), Denies frequent falls, Denies weakness, Denies weight gain and Denies weight loss ENT Denies dizziness Card Denies chest pain, Denies leg edema, Denies lightheadedness, Denies palpitations, Denies dyspnea and Denies dyspnea on exertion Resp Denies cough, Denies dyspnea and Denies dyspnea on exertion GI Denies hematochezia Musc Denies abnormal gait, Denies muscle weakness, Denies numbness, Denies radiating pain into limb and Denies tingling Neuro Denies abnormal gait, Denies dizziness, Denies frequent falls, Denies numbness, Denies tingling and Denies weakness Endo Denies fatigue and Denies palpitations Physical Exam Vital Signs: Last Vital Signs Pulse 74 12/21/24 14:13 BP 120/62 12/21/24 14:13 BMI result Body Mass Index 30.1 Const General: comfortable and no acute distress Orientation/consciousness: patient oriented x3 HEENT Other: Unremarkable Head: Yes normal to inspection Neck Neck: Yes normal visual inspection Chest Chest palpation & inspection: normal inspection of the chest Resp Auscultation: clear to auscultation bilaterally Cardio Palpation: normal PMI Heart sounds: S1 normal heart sound present, S2 normal heart sound present, no gallops, no murmurs and no rubs GI Palpation (GI): Soft to palpation Back/Spine/Pelvis Other: unremarkable Skin General skin exam: no rashes or lesions noted Neuro General: patient oriented x3 Extrem General: Yes normal to inspection Psych Mental Status: mental status grossly normal Assessment & Plan Assessment & Plan (1) Precordial chest pain: Code(s): R07.2 - Precordial pain Category: Medical (2) Abnormal myocardial perfusion study: Code(s): R94.39 - Abnormal result of other cardiovascular function study Category: Medical Plan Cardiac testing reviewed. In the echocardiogram, LVEF is 55-60% with no reported wall motion abnormalities and otherwise unremarkable. In the exercise stress test, she was able to exercise for 4.7 METS on [place] protocol with shortness of breath and EKG changes meeting criteria for ischemia. In the perfusion component, reported severe fixed distal lateral/inferior apical defect-possible severe ischemia as there was no overt wall motion abnormality. Findings discussed with patient. She is very vague in description of the chest pain and denies anything recent. However, based on the findings on the stress test, still recommended diagnostic catheterization. After long discussion and multiple reassurances, she finally agrees. Start low-dose aspirin. She is already on some statins in the that can be continued. Otherwise, we will arrange follow-up after completing catheterization. Discussion Notes I discussed with the patient the findings of a potential coronary artery blockage and the need for a catheterization procedure to further evaluate and possibly treat the condition. I explained the procedure, including the insertion of a catheter and the use of intravenous dye, and reassured the patient about the safety and necessity of the procedure. We also discussed the current status of the patient's polyps and the decision to delay their removal until after the cardiac evaluation. Patient was informed and verbally consented to the use of an ambient scribe for clinic note documentation during this visit. Orders: Orders Comprehensive Met. Panel Today R07.2 - Precordial pain Lipid Panel Today E78.5 - Hyperlipidemia, unspecified, R07.2 - Precordial pain Cardiac Cath LT Diagnostic Today R07.2 - Precordial pain Complete Blood Count no Diff Today R07.2 - Precordial pain Prothrombin Time INR Today I25.10 - Atherosclerotic heart disease of [place] coronary artery without angina pectoris, R07.2 - Precordial pain Patient Instructions: - Take a baby aspirin daily as advised. - Prepare for the catheterization procedure as scheduled. - Focus on addressing the coronary artery blockage before considering polyp removal. Coding Level of Care Code Est Pt Level 4 (20949) Complex EM visit Add On G2211 Diagnoses Precordial chest pain R07.2 Abnormal myocardial perfusion study R94.39
[2024-12-21 14:13] VITALS: BP 120/62; PULSE 74; BMI 30.1
== END 2024-12-21 14:55 | disposition home or self-care (01) ==
LOC: HO.HCS 13:54
PROVIDERS: PCP Internal Medicine; Visit Provider Internal Medicine
DX: R07.2 Precordial pain (principal); R94.39 Abnormal result of other cardiovascular function study
CPT/HCPCS: 99214; G2211

== ENCOUNTER → 2025-01-11 23:59 | Outpatient (BNV) | payer MEDICARE, MEDICAID, SELFPAY | PROVIDERS: PCP Internal Medicine; Visit Provider Internal Medicine Cardiovascular Disease | DX: I25.10 Atherosclerotic heart disease of native coronary artery without angina pectoris (principal) | CPT/HCPCS: 93458; 99152 ==